=== PATIENT | female | born 1930 | race Caucasian/White ===

== ENCOUNTER 2016-10-23 18:57 | Inpatient (IN) | payer MEDICARE, BC ==
[~2016-10-23] VITALS: Ht 165.1 cm; Wt 47.2 kg
--- NOTE | 2016-10-23 19:08 | NUR ---
PT BIBA #878 PT STATES SHE HAD A GLF YESTERDAY C/O LEFT SHOULDER AND LEFT HIP PAIN. PT AOX3 RR EVEN AND UNLABORED. NO SOB NOTED. NAD NOTED. NO NVD AT THIS TIME. PT NOT DIAPHORETIC. PT GOWNED AND PLACED ON MONITOR. MD AT BEDSIDE FOR EVAL.
--- NOTE | 2016-10-23 19:09 | NUR ---
NOTED BRUISE ON MD BROOKE AWARE.
--- NOTE | 2016-10-23 19:20 | NUR ---
PT TO CT
[2016-10-23 19:41] LABS: BASOPHILS % (AUTO) 0.2 % (0.0-2.0); EOSINOPHILS % (AUTO) 0.3 % (0.0-6.0); HEMATOCRIT 27 % (33-45); HEMOGLOBIN 9.1 g/dL (11.5-14.8); LYMPHOCYTES # (AUTO) 0.4 /CMM (0.8-4.8); LYMPHOCYTES % (AUTO) 3.3 % (20.0-44.0); MEAN CORPUSCULAR HEMOGLOBIN 28 PG (26.0-33.0); MEAN CORPUSCULAR HGB CONC 34 g/dl (31.0-36.0); MEAN CORPUSCULAR VOLUME 84 fL (82-100); MONOCYTES # (AUTO) 1.3 /CMM (0.1-1.30); MONOCYTES % (AUTO) 9.5 % (2.0-12.0); NEUTROPHILS # (AUTO) 11.5 /CMM (1.8-8.9); NEUTROPHILS % (AUTO) 86.7 % (43.0-81.0); PLATELET COUNT (AUTO) 250 /CMM (150-450); RDW COEFFICIENT OF VARIATION 19.4 (11.5-15.0); RED BLOOD CELL COUNT(AUTO) 3.21 MIL/uL (4.0-5.2); WHITE BLOOD COUNT (AUTO) 13.2 K/uL (4.3-11.0)
--- NOTE | 2016-10-23 19:41 | NUR ---
PT RETURNED FROM CT. CAREGIVER AT BEDSIDE
[2016-10-23 19:49] LABS: CALCIUM, SERUM 8.4 mg/dL (8.5-10.1); CARBON DIOXIDE 22 mmol/L (21-32); CHLORIDE 95 mmol/L (98-107); CREATININE 1.7 mg/dL (0.6-1.3); GLUCOSE 117 mg/dL (74-106); POTASSIUM 3.9 mmol/L (3.5-5.1); SODIUM SERUM 131 mmol/L (136-145); UREA NITROGEN, BLOOD 14 mg/dL (7-18)
[2016-10-23 19:52] LABS: INR 0.97 (0.87-1.13); PROTHROMBIN TIME 10.1 SECS (9.5-12.7)
[2016-10-23 19:56] LABS: ALANINE AMINOTRANSFERASE 17 U/L (12-78); ALBUMIN 2.9 g/dL (3.4-5.0); ALKALINE PHOSPHATASE 164 U/L (46-116); ASPARTATE AMINOTRANSFERASE 40 U/L (15-37); BILIRUBIN,DIRECT 0.2 mg/dL (0.0-0.2); BILIRUBIN,TOTAL 0.5 mg/dL (0.2-1.0); TOTAL PROTEIN, SERUM 7.1 g/dL (6.4-8.2); TROPONIN I < 0.017 ng/mL (0.00-0.056)
[2016-10-23] MEDS ORDERED: MORPHINE SULFATE INJ 2 MG/ML DISP.SYRIN IV ONE (20:30)
[2016-10-23] MEDS ORDERED: MORPHINE SULFATE INJ 2 MG/ML DISP.SYRIN ONE (20:32)
--- NOTE | 2016-10-23 20:44 | NUR ---
MD AT BEDSIDE SPEAKING PT KAMALJIT SNEED AND PT.
--- NOTE | 2016-10-23 20:45 | NUR ---
KAMALJIT MOTTA (BANNER) CELL [phone]
--- NOTE | 2016-10-23 20:56 | NUR ---
URINE COLLECTED. SENT TO LAB
--- NOTE | 2016-10-23 21:13 | NUR ---
Dr Marsh paged for PT admit.
--- NOTE | 2016-10-23 21:49 | NUR ---
PT ASSIGNED TO [place] BED 321
--- NOTE | 2016-10-23 21:52 | NUR ---
PT ASSIGNED TO MS 204
[2016-10-23] MEDS ORDERED: Z GUARD REMEDY 2 OZ OINT TP PRN (22:00)
[2016-10-23] MEDS ORDERED: ZOLPIDEM TARTRATE 5 MG TABLET PO PRN (22:00)
[2016-10-23] MEDS ORDERED: MAGNESIUM HYDROXIDE 30 ML UDC PO PRN (22:00)
[2016-10-23] MEDS ORDERED: MORPHINE SULFATE INJ 2 MG/ML DISP.SYRIN IV PRN (22:00)
[2016-10-23] MEDS ORDERED: ONDANSETRON HCL/PF 4 MG/2 ML VIAL IVP PRN (22:00)
[2016-10-23] MEDS ORDERED: MAG HYDROX/AL HYDROX/SIMETH 30 ML UDC PO PRN (22:00)
[2016-10-23] MEDS ORDERED: ACETAMINOPHEN 325 MG TABLET PO PRN (22:00)
--- NOTE | 2016-10-23 22:05 | NUR ---
REPORT GIVEN SOMMER
--- NOTE | 2016-10-23 22:28 | NUR ---
PT TRANSFERED VIA [facility] TO MS BED 204
[2016-10-23 22:50] VITALS: BP 130/97
--- NOTE | 2016-10-23 22:50 | NUR ---
MS RN ADMITTING NOTES: ADMITTED AN 86 YO FEMALE PATIENT WHO WAS SEEN IN THE ER AFTER HAVING A MECHANICAL FALL AT HOME. PATIENT WAS ADMITTED FOR LEFT HIP AND LEFT SHOULDER FRACTURE. PATIENT WAS TRANSFERRED TO MT FLOOR VIA TIMOTHY, AOX4, ON O2 AT 2 LPM VIA NC, BREATHING EVEN AND UNLABORED. PATIENT ACCOMPANIED BY CAREGIVER. APPEARS CALM, BUT STATES THAT SHE HAS 7/10 PAIN OVER HER LEFT HIP AND SHOULDER WHEN SHE IS NOT BEING MOVED AND 10/10 PAIN WHENEVER SHE IS BEING TURNED. NOTED LARGE BRUISED AREA FROM LEFT SHOULDER TO AXILLA TO LEFT UPPER ARM. ELEVATED AREA AND APPLEID ICE PACK. PROVIDED FOR COMFORT AND SAFETY. ADMITTING CARE DONE. WILL CONT TO MONITOR.
--- NOTE | 2016-10-23 23:15 | NUR ---
RN NOTES: PATIENT STATES THAT SHE HAS HER CPA , KAMALJIT MOTTA, HAS COPY OF HER ADVANCE DIRECTIVES. IN THE MEANTIME, SHE STATED THAT SHE DOES NOT WANT TO BE INTUBATED (DNI), BUT IS AGREEABLE TO CPR. DR FLEMING AT BEDSIDE, TOOK NOTE, AND EXPLAINED TO PATIENT. WILL FF UP COPY OF ADVANCE DIRECTIVES WITH KAMALJIT MOTTA .
--- NOTE | 2016-10-23 23:15 | NUR ---
RN NOTES: DR FLEMING AT BEDSIDE. ORDERED FOR BACON CATHETER AND UA. STATES IV FLUID NOT NEEDED AT THIS TIME.
[2016-10-24] VITALS (13 sets, daily range): BP systolic 103–140; BP diastolic 60–78
--- NOTE | 2016-10-24 00:30 | NUR ---
RN NOTES: BACON CATHETER FR 16 INSERTED. NOTED CLOUDY APPEARANCE OF URINE. INFORMED DR FLEMING, WHO ORDERED FOR UA. NOTED AND CARRIED OUT.
[2016-10-24] MEDS ORDERED: MORPHINE SULFATE INJ 2 MG/ML DISP.SYRIN ONE (00:49)
[2016-10-24] MEDS: MORPHINE SULFATE INJ 2 MG/ML DISP.SYRIN IV PRN ×4 (00:55→19:18)
--- NOTE | 2016-10-24 02:21 | NUR ---
RN NOTES: PATIENT HAS BAG WITH CAREGIVER, CONTENTS CHECKED, AND BOTTLE OF UNKNOWN MIXED PILLS/ TABLETS WERE FOUND INSIDE. ACCDG TO HER, IT IS JUST HER OLD VITAMINS. PATIENT UNABLE TO RECALL WHAT THESE ARE FOR. PATIENT AGREED TO GIVE IT TO PHARMACY FOR SAFEKEEPING. FOR VALUABLES IN BAG, OFFERED TO PLACE IT IN SAFE IN TURRET PUNCH PRESS OPERATOR'S OFFICE FOR SAFEKEEPING, PATIENT REFUSED, SAYING SHE WANTS IT TO BE KEPT BY CAREGIVER.
--- NOTE | 2016-10-24 06:32 | NUR ---
MS RN CLOSING NOTES: PATIENT IN BED, AOX4, ON O2 AT 2 LPM VIA NC FOR COMFORT, BREATHING EVEN AND UNLABORED. PIV ACCESS OVER RAC G 18 INTACT AND PATENT TO FLUSH. MAINTAINED ON NPO. DUE MEDS GIVEN, PROVIDED FOR COMFORT AND SAFETY. CAREGIVER AT BEDSIDE. WILL ENDORSE TO AM RN FOR KWABENA.
[2016-10-24 06:42] LABS: BASOPHILS % (AUTO) 0.6 % (0.0-2.0); EOSINOPHILS % (AUTO) 0.4 % (0.0-6.0); HEMATOCRIT 23 % (33-45); HEMOGLOBIN 7.4 g/dL (11.5-14.8); LYMPHOCYTES # (AUTO) 0.9 /CMM (0.8-4.8); LYMPHOCYTES % (AUTO) 11.8 % (20.0-44.0); MEAN CORPUSCULAR HEMOGLOBIN 27 PG (26.0-33.0); MEAN CORPUSCULAR HGB CONC 32 g/dl (31.0-36.0); MEAN CORPUSCULAR VOLUME 84 fL (82-100); MONOCYTES % (AUTO) 13.8 % (2.0-12.0); NEUTROPHILS # (AUTO) 5.4 /CMM (1.8-8.9); NEUTROPHILS % (AUTO) 73.4 % (43.0-81.0); PLATELET COUNT (AUTO) 211 /CMM (150-450); RDW COEFFICIENT OF VARIATION 21.4 (11.5-15.0); RED BLOOD CELL COUNT(AUTO) 2.76 MIL/uL (4.0-5.2); WHITE BLOOD COUNT (AUTO) 7.4 K/uL (4.3-11.0)
--- NOTE | 2016-10-24 07:05 | NUR ---
MS RN OPENING RECEIVED PATIENT A/OX4 STATES PAIN CONTROLLED WITH PRN MEDICATIONS AND NON PHARM MEASURES. DENIES SOB AND DIFFICULTY BREATHING RESPIRATIONS EQUAL AND UNLABORED. PATIENT HAS A 24H CAREGIVER AT BEDSIDE AND STATES NO NEEDS AT THIS TIME APPEARS STABLE. CALL LIGHT IN REACH, BED LOWERED AND LOCKED, RAILS UPX3 FOR SAFETY AND WILL ROUND Q2H OR LESS PER NEEDS. BED ALARM ON
[2016-10-24 07:11] LABS: CREATININE 1.5 mg/dL (0.6-1.3); MAGNESIUM 1.4 mg/dL (1.8-2.4); PHOSPHORUS 4.3 mg/dL (2.5-4.9); POTASSIUM 4.4 mmol/L (3.5-5.1)
[2016-10-24 07:14] LABS: APPEARANCE,URINE SL CLOUDY (CLEAR); BILIRUBIN,URINE NEGATIVE (NEGATIVE); BLOOD, URINE 3+ Ery/uL (NEGATIVE); COLOR,URINE YELLOW (YELLOW); KETONES,URINE NEGATIVE (NEGATIVE); LEUKOCYTE ESTERASE ,URINE 2+ (NEGATIVE); NITRITE, URINE POSITIVE (NEGATIVE); PROTEIN,URINE 2+ mg/dl (NEGATIVE); UGLUCOSE NEGATIVE (NEGATIVE); UROBILINOGEN,URINE 0.2 EU/dL (0.2)
[2016-10-24 07:35] LABS: ADD URINE CULTURE YES; BACTERIA,URINE Moderate /HPF (None Seen); SQUAMOUS EPITHELIAL CELL,UR Few /HPF (None Seen); WBC,URINE TOO NUMEROUS TO COUN /HPF (0-3)
[2016-10-24 07:36] LABS: RBC,URINE 21-50 /HPF (0-2)
--- NOTE | 2016-10-24 08:21 | NUR ---
MS RN NOTES PER DR FLEMING PATIENT IS TO BE NPO
--- NOTE | 2016-10-24 08:34 | NUR ---
WOUND CARE CONSULT: PT PRESENTS WITH BRUISING AND SWELLING TO LEFT UPPER ARM AND SHOULDER, PRESENT ON ADMISSION AND TENDERNESS TO LEFT HIP. SACRUM IS VERY BONY WITH BLANCHING REDNESS. PT ON RONNIE PRESSURE REDISTRIBUTION MATTRESS AT THIS TIME. FIRST STEP MATTRESS ORDERED BY MD. CROW IS 13. PT TO BE TURNED AND REPOSITIONED EVERY 2 HRS PT CONDITION PERMITS, HEELS FLOATED. ALL SKIN PROTECTION MEASURES IN PLACE. DISCUSSED WITH NURSING STAFF. MD IN AGREEMENT WITH PLAN OF CARE. Addendum: 10/24/16 at 0836 by EDWARD SAMAYOAU Amended: Links added. Addendum: 10/24/16 at 0837 by EDWARD JAQUEZ PT HAS CAREGIVER AT BEDSIDE.
--- NOTE | 2016-10-24 09:15 | NUR ---
MS RN NOTES SPOKE WITH PATIENT POA AND THEY WILL FAX CODE STATUS PAPERS
[2016-10-24] MEDS: IV NS 0.9% 1,000 ML IV PRN (11:02)
--- NOTE | 2016-10-24 12:45 | NUR ---
MS RN NOTES WESLEY AWARE OF PATIENT DROP IN HBG
--- NOTE | 2016-10-24 13:00 | NUR ---
MS RN NOTES NOTIFIED WESLEY OF PATIENT URINE RESULTS
[2016-10-24] MEDS ORDERED: SECONDARY IV SET 1 EA INFUS.SET MC ONE (13:03)
[2016-10-24] MEDS: Magnesium 1GM/D5W 100ML PREMIX 100 ML IV SCH ×4 (13:19→22:18)
[2016-10-24] MEDS ORDERED: BLOOD IV SET 1 EA INFUS.SET MC ONE ×2 (14:13→21:47)
[2016-10-24] MEDS ORDERED: IV NS 0.9% 250 ML IV ONE (14:13)
--- NOTE | 2016-10-24 14:27 | NUR ---
MS RN NOTES PT A/OX4 CONSENTING TO BLOOD TRANSFUSION. PATIENT IS LEFT HANDED AND UNABLE TO SIGN PAPERS FOR BLOOD TRANSFUSION. REQUESTING 2 RN TO SIGN ON BEHALF. PATIENT CONSENTS TO BLOOD TRANSFUSION
[2016-10-24 17:15] LABS: THYROID STIMULATING HORMONE 3.785 uIU/mL (0.358-3.74)
--- NOTE | 2016-10-24 17:30 | NUR ---
MS RN NOTES CALLED [facility] TO HAVE SLING BROUGHT UP
[2016-10-24] MEDS: CEFTRIAXONE 1 G in IV D5W 50 ML IV SCH (18:17)
--- NOTE | 2016-10-24 19:05 | NUR ---
MS RN CLOSING PT STABLE. TOLERATED BLOOD TRANSFUSION WELL NO COMPLICATIONS VS STABLE. PAIN MANAGED WITH PRN MEDICATIONS. AWAITING ARM SLING FOR PATIENT. PATIENT STATES SHE WILL TRY AND SIGN HER CONSENTS AGAIN. 24HR CAREGIVER AT BEDSIDE. ALL DUE MEDS GIVEN AND ALL NEEDS MET. ENDORSED TO SOMMER CLARK THAT PATIENT IS NEEDING ANOTHER BLOOD TRANSFUSION AND TO COMPLETE 2 MORE BAGS OF MAGNESIUM WELL. AT THIS TIME BAG #2 OF MAG BEING INFUSED. PT STATES SHE WOULD LIKE PAIN MEDICATIONS PAIN IS UNTOLERABLE, WILL GIVE FOR PATIENT. LEFT WITH CALL LIGHT IN REACH, BED LOWERED AND LOCKED, RAILS UPX3 WITH BED ALARM ON. CARE ENDORSED TO SOMMER CLARK
--- NOTE | 2016-10-24 19:30 | NUR ---
MS RN CLOSING NOTES: PATIENT IN BED , AOX4, ON ROOM AIR, BREATHING EVEN AND UNLABORED. BREATH SOUNDS CLEAR. APPEARS CALM AND IN NO DISTRESS. STATES THAT SHE HAS PAIN AT AROUND 6 /10 OVER HER LEFT HIP AND SHOULDER. PIV ACCESS OVER RAC G 18 INTACT AND PATENT, INFUSING WELL WITH IVF OF NS RUNNING AT 75 ML/HR. PROVIDED FOR COMFORT AND SAFETY. PRIVATE CG AT BEDSIDE. WILL CONT TO MONITOR.
--- NOTE | 2016-10-24 19:45 | NUR ---
MS RN NOTES PT SIGNED CONSENTS FOR EGD AND PROCEDURE
--- NOTE | 2016-10-24 22:00 | NUR ---
RN NOTES: REITERATED NPO ORDERS TO PATIENT OF THIS TIME FOR ORTHO PROCEDURE IN AM (L REVERSE TOTAL SHOULDER ARTHROPLASTY) WELL EGD. CONSENTS SIGNED. PATIENT AND CAREGIVER VERBALIZED AGREEMENT. WILL CONT TO MONITOR.
--- NOTE | 2016-10-24 23:15 | NUR ---
RN NOTES: STARTED SECOND BAG OF PRBC FOR TRANSFUSION. VS CHECKED AND WNL PRIOR TO HANGING OF BLOOD PRODUCT. CONSENT FORM FOR BT SIGNED. BREATH SOUNDS CLEAR, AFEBRILE, IN NO DISTRESS. PIV OVER RAC G 18 INTACT AND PATENT.
[2016-10-25] VITALS (7 sets, daily range): BP systolic 109–134; BP diastolic 59–70
--- NOTE | 2016-10-25 | NUR ---
RN NOTES: PATIENT ASLEEP AT THIS TIME, BUT AWAKENS WITH COMMAND, DENIES ANY , FLANK PAIN, ITCHING. VS WNL, CONSTANTLY MONITORED. PRBC TRANSFUSING PATENTLY OVER RAC PIV ACCESS. WILL CONT TO MONITOR.
--- NOTE | 2016-10-25 02:24 | NUR ---
RN NOTES: TRANSFUSION OF 2ND UNIT PRBC DONE AT THIS TIME. VS STAYED WNL THROUGHOUT THE TRANSFUSION. NO TRANSFUSION REACTION SIGNS OBSERVED. PATIENT REMAINS CALM, ASLEEP INTERMITTENTLY. WILL CONT TO MONITOR.
[2016-10-25] MEDS: IV NS 0.9% 1,000 ML IV PRN (06:02)
[2016-10-25] MEDS ORDERED: EPINEPHRINE (1:1000) MDV 30 MG/30ML VIAL ONE (06:22)
[2016-10-25] MEDS ORDERED: BUPIVACAINE 0.5 % PF 150 MG/30 ML VIAL ONE (06:22)
[2016-10-25 06:48] LABS: BASOPHILS % (AUTO) 0.3 % (0.0-2.0); EOSINOPHILS # (AUTO) 0.1 /CMM (0.0-0.7); EOSINOPHILS % (AUTO) 0.9 % (0.0-6.0); HEMATOCRIT 33 % (33-45); LYMPHOCYTES # (AUTO) 0.7 /CMM (0.8-4.8); LYMPHOCYTES % (AUTO) 8.2 % (20.0-44.0); MEAN CORPUSCULAR HEMOGLOBIN 29 PG (26.0-33.0); MEAN CORPUSCULAR HGB CONC 33 g/dl (31.0-36.0); MEAN CORPUSCULAR VOLUME 86 fL (82-100); MONOCYTES # (AUTO) 1.1 /CMM (0.1-1.30); NEUTROPHILS # (AUTO) 6.9 /CMM (1.8-8.9); NEUTROPHILS % (AUTO) 78.6 % (43.0-81.0); PLATELET COUNT (AUTO) 181 /CMM (150-450); RDW COEFFICIENT OF VARIATION 17.8 (11.5-15.0); RED BLOOD CELL COUNT(AUTO) 3.85 MIL/uL (4.0-5.2); WHITE BLOOD COUNT (AUTO) 8.8 K/uL (4.3-11.0)
[2016-10-25] MEDS ORDERED: BACITRACIN 50000 UNITS/VIAL ONE (06:49)
--- NOTE | 2016-10-25 07:05 | NUR ---
MS RN CLOSING NOTES: PATIENT IN BED, AOX4, ON ROOM AIR, BREATHING EVEN AND UNLABORED. OR NURSES AT BEDSIDE TO FLOWER ARRANGER PATIENT. PIV ACCESS OVER RAC G 18 INTACT AND PATENT, INFUSING WELL WITH NS RUNNING AT 75 ML/HR. MAINTAINED ON NPO. BLOOD SUGAR CHECKED AT 93 MG/DL. NO ACUTE CHANGE IN CONDITION NOTED THROUGH SHIFT. PROVIDED FOR COMFORT AND SAFETY. PATIENT BROUGHT TO OR AT 0705 AM. WILL ENDORSE TO AM RN FOR KWABENA.
[2016-10-25 07:28] LABS: CALCIUM, SERUM 8.1 mg/dL (8.5-10.1); CREATININE 1.1 mg/dL (0.6-1.3); MAGNESIUM 2.7 mg/dL (1.8-2.4); POTASSIUM 3.8 mmol/L (3.5-5.1)
--- NOTE | 2016-10-25 07:35 | NUR ---
RN NOTES PATIENT IN OR WILL CONTINUE TO MONITOR UPON RETURN
[2016-10-25] MEDS ORDERED: FENTANYL PF 250MCG/5ML AMPUL ONE (07:41)
[2016-10-25] MEDS ORDERED: ROCURONIUM BROMIDE 50 MG/5 ML ONE (07:41)
[2016-10-25] MEDS ORDERED: KETAMINE HCL (500MG/10ML) 50 MG/ML VIAL ONE (07:41)
[2016-10-25] MEDS ORDERED: MIDAZOLAM HCL 2 MG/2ML VIAL ONE (07:41)
[2016-10-25] MEDS ORDERED: GLYCOPYRROLATE 0.2 MG/ML VIAL ONE (09:15)
[2016-10-25 09:34] LABS: MAGNESIUM 2.7 mg/dL (1.8-2.4)
[2016-10-25] MEDS ORDERED: NALOXONE HCL 0.4 MG/ML AMPUL ONE (10:01)
--- NOTE | 2016-10-25 11:00 | NUR ---
RN NOTES PATIENT BACK FROM OR, AWAKE ALERT AND VERBALLY RESPONSIVE ABLE TO MAKE NEEDS KNOWN RESPIRATIONS EVEN AND UNLABORED, VSS IN NO APPARENT PAIN OR DISCOMFORT WILL CONTINUE TO MONITOR
[2016-10-25 12:30] LABS: BETA-2 MICROGLOBULIN, SERUM 5.2 mg/L (0.6-2.4); CANCER AG, 15-3 25.5 U/mL (0.0-25.0); IMMUNOGLOBULIN A, SERUM 710 mg/dL (64-422); IMMUNOGLOBULIN G, SERUM 900 mg/dL (700-1600); IMMUNOGLOBULIN M, SERUM 100 mg/dL (26-217)
[2016-10-25] MEDS ORDERED: SECONDARY IV SET 1 EA INFUS.SET MC ONE ×2 (13:11→17:37)
[2016-10-25] MEDS: CEFTRIAXONE 1 G in IV D5W 50 ML IV SCH (13:21)
[2016-10-25] MEDS ORDERED: ANESTHESIA TRAY IN PYXIS 1 EA TRAY MC ONE (13:27)
[2016-10-25] MEDS: HYDROCODONE/APAP 5/325MG 1 EACH TABLET PO PRN ×2 (14:15→20:02)
[2016-10-25 14:26] LABS: *SPE A/G RATIO 0.9 (0.7-1.7); *SPE ALBUMIN 2.7 g/dL (2.9-4.4); *SPE ALPHA-1-GLOBULIN 0.4 g/dL (0.0-0.4); *SPE ALPHA-2-GLOBULIN 0.6 g/dL (0.4-1.0); *SPE BETA GLOBULIN 0.8 g/dL (0.7-1.3); *SPE M-SPIKE Not Observed g/dL (Not Observed); *SPE PROTEIN TOTAL 5.7 g/dL (6.0-8.5); *SPEGAMMA GLOBULIN 1.3 g/dL (0.4-1.8)
[2016-10-25 17:34] LABS: HEMATOCRIT 32 % (33-45); HEMOGLOBIN 10.6 g/dL (11.5-14.8); LYMPHOCYTES # (AUTO) 0.3 /CMM (0.8-4.8); LYMPHOCYTES % (AUTO) 2.5 % (20.0-44.0); MEAN CORPUSCULAR HEMOGLOBIN 28 PG (26.0-33.0); MEAN CORPUSCULAR HGB CONC 33 g/dl (31.0-36.0); MEAN CORPUSCULAR VOLUME 86 fL (82-100); MONOCYTES # (AUTO) 0.4 /CMM (0.1-1.30); NEUTROPHILS # (AUTO) 10.1 /CMM (1.8-8.9); NEUTROPHILS % (AUTO) 93.5 % (43.0-81.0); PLATELET COUNT (AUTO) 197 /CMM (150-450); RDW COEFFICIENT OF VARIATION 18.1 (11.5-15.0); RED BLOOD CELL COUNT(AUTO) 3.76 MIL/uL (4.0-5.2); WHITE BLOOD COUNT (AUTO) 10.8 K/uL (4.3-11.0)
[2016-10-25] MEDS: ANCEF 1 GM/50 ML D5W IV SCH ×2 (17:45)
[2016-10-25 17:46] LABS: CALCIUM, SERUM 7.7 mg/dL (8.5-10.1); CREATININE 1.4 mg/dL (0.6-1.3); POTASSIUM 4.1 mmol/L (3.5-5.1)
--- NOTE | 2016-10-25 19:30 | NUR ---
RN NOTE; RECEIVED A PT IN BED AWAKE AND ALERT. BREATHING EVENLY. NO SOB. NO DISTRESS. LEFT SHOULDER SLING IN PLACE W/ SOME DISCOMFORT. F/C IN PLACE DRAINING WELL. NEEDS ATTENDED. CALL LIGHT WITHIN REACH. WILL CONT TO MONITOR
--- NOTE | 2016-10-25 19:36 | NUR ---
RN NOTES PT REFUSED, UNABLE TO STAND Addendum: 10/25/16 at 1937 by JOSE HERNANDEZ RN Amended: Links added. Addendum: 10/25/16 at 1942 by JOSE HERNANDEZ RN RN NOTES PT REFUSED, NURSING EDUCATION REINFORCED
--- NOTE | 2016-10-25 19:43 | NUR ---
RN NOTES: PATIENT IN BED, AOX4, ON ROOM AIR, BREATHING EVEN AND UNLABORED. PIV ACCESS OVER RAC G 18 INTACT AND PATENT NO REDNESS OR INFILTRATION NOTED, INFUSING WELL WITH NS RUNNING AT 75 ML/HR. NO ACUTE CHANGE IN CONDITION NOTED THROUGHOUT SHIFT. PROVIDED FOR COMFORT AND SAFETY. ENDORSED TO NEXT SHIFT FOR CONTINUITY OF CARE
--- NOTE | 2016-10-25 20:02 | NUR ---
NORCO GIVEN FOR C/O L SHOULDER PAIN . WILL CONT TO MONITOR
[2016-10-26] MEDS: ANCEF 1 GM/50 ML D5W IV SCH ×2 (00:22)
[2016-10-26] MEDS: HYDROCODONE/APAP 5/325MG 1 EACH TABLET PO PRN ×3 (02:50→20:17)
--- NOTE | 2016-10-26 02:51 | NUR ---
NORCO GIVEN FOR C/O L SHOULDER PAIN . WILL CONT TO MONITOR
--- NOTE | 2016-10-26 06:19 | NUR ---
RN NOTE; PT IN BED SLEEPING, AROUSES EASILY. BREATHING EVENLY. NO COMPLICATION S/P SX. DRESSING AND SLING IN PLACE ON L SHOULDER. PAIN MEDICATION GIVEN ORDERED W/ RELIEF. ASSISTED W/ ADLS. CALL LIGHT WITHIN REACH. WILL CONT TO MONITOR AND WILL ENDORSE TO AM SHIFT FOR KWABENA.
[2016-10-26 06:59] LABS: BASOPHILS % (AUTO) 0.1 % (0.0-2.0); HEMATOCRIT 29 % (33-45); HEMOGLOBIN 9.6 g/dL (11.5-14.8); LYMPHOCYTES # (AUTO) 0.4 /CMM (0.8-4.8); LYMPHOCYTES % (AUTO) 3.6 % (20.0-44.0); MEAN CORPUSCULAR HEMOGLOBIN 29 PG (26.0-33.0); MEAN CORPUSCULAR HGB CONC 33 g/dl (31.0-36.0); MEAN CORPUSCULAR VOLUME 87 fL (82-100); MONOCYTES # (AUTO) 0.9 /CMM (0.1-1.30); MONOCYTES % (AUTO) 8.1 % (2.0-12.0); NEUTROPHILS # (AUTO) 9.7 /CMM (1.8-8.9); NEUTROPHILS % (AUTO) 88.2 % (43.0-81.0); PLATELET COUNT (AUTO) 208 /CMM (150-450); RDW COEFFICIENT OF VARIATION 17.9 (11.5-15.0); RED BLOOD CELL COUNT(AUTO) 3.33 MIL/uL (4.0-5.2)
[2016-10-26 07:27] LABS: CALCIUM, SERUM 7.4 mg/dL (8.5-10.1); CREATININE 1.3 mg/dL (0.6-1.3); POTASSIUM 4.3 mmol/L (3.5-5.1)
--- NOTE | 2016-10-26 07:40 | NUR ---
RN NOTES: PATIENT IN BED, AOX4, ON ROOM AIR, BREATHING EVEN AND UNLABORED. PIV ACCESS OVER RFA 22 G INTACT AND PATENT NO REDNESS OR INFILTRATION NOTED, INFUSING WELL WITH NS RUNNING AT 75 ML/HR. NO ACUTE CHANGE IN CONDITION NOTED THROUGHOUT SHIFT. PROVIDED FOR COMFORT AND SAFETY. WILL CONTINUE TO MONITOR
[2016-10-26 08:00] VITALS: BP 126/79
[2016-10-26] MEDS ORDERED: SECONDARY IV SET 1 EA INFUS.SET MC ONE (10:58)
[2016-10-26] MEDS ORDERED: Calcium Gluconate 1GM/10ML 4.65 MEQ in IV D5W 50 ML IV ONE (11:00)
[2016-10-26] MEDS: ENOXAPARIN SODIUM 40 MG/0.4 ML DISP.SYRIN SQ SCH (11:09)
[2016-10-26] MEDS: CEFTRIAXONE 1 G in IV D5W 50 ML IV SCH (14:14)
[2016-10-26 16:00] VITALS: BP 132/78
--- NOTE | 2016-10-26 19:30 | NUR ---
RN NOTES RECEIVED PT. AWAKE ON BED, A/OX3. CAREGIVER AT BEDSIDE, F/C DRAINING CLEAR YELLOW URINE, IV FLUID NS RUNNING @ 75ML/HR,DRESSING ON THE LEFT SHOULDER DRY AND INTACT, DENIES PAIN AT THIS TIME,. NO SOB CALL LIGHT WITHIN REACH, SIDERAILS UPX2 CONTINUE TO MONITOR
--- NOTE | 2016-10-26 19:33 | NUR ---
RN NOTES: PATIENT IN BED, AOX4, ON ROOM AIR, BREATHING EVEN AND UNLABORED. PIV ACCESS OVER RFA 22 G INTACT AND PATENT NO REDNESS OR INFILTRATION NOTED, INFUSING WELL WITH NS RUNNING AT 75 ML/HR. NO ACUTE CHANGE IN CONDITION NOTED THROUGHOUT SHIFT. PROVIDED FOR COMFORT AND SAFETY. WILL CONTINUE TO MONITOR, ENDORSED TO NEXT SHIFT FOR CONTINUITY OF CARE
[2016-10-26 19:53] VITALS: BP 124/72
--- NOTE | 2016-10-26 20:17 | NUR ---
RN NOTES COMPLAINED OF LEFT SHOULDER PAIN- NORCO 5/325 MG PO GIVEN ORDERED, V/S STABLE
[2016-10-26] MEDS: IV NS 0.9% 1,000 ML IV PRN (20:39)
[2016-10-26] MEDS ORDERED: SENNOSIDES/DOCUSATE SODIUM 1 TAB TABLET PO SCH (22:00)
[2016-10-27] MEDS: HYDROCODONE/APAP 5/325MG 1 EACH TABLET PO PRN (06:35)
--- NOTE | 2016-10-27 06:38 | NUR ---
RN NOTES COMPLAINED OF LEFT SHOULDER PAIN- NORCO 5/325 MG PO GIVEN ORDERED, V/S STABLE
--- NOTE | 2016-10-27 06:45 | NUR ---
RN NOTES SLEEPING BUT AROUSABLE, PT STILL REFUSING MORNING CARE, IV FLUID RUNNING, DRESSING ON THE LEFT SHOULDER DRY AND INTACT, PT. NEEDS ATTENDED.
[2016-10-27 07:18] LABS: CALCIUM, SERUM 7.7 mg/dL (8.5-10.1); CREATININE 1.3 mg/dL (0.6-1.3); POTASSIUM 3.6 mmol/L (3.5-5.1)
[2016-10-27 08:00] VITALS: BP 149/80
[2016-10-27] MEDS: MORPHINE SULFATE INJ 2 MG/ML DISP.SYRIN IV PRN ×3 (09:30→21:34)
[2016-10-27] MEDS: ENOXAPARIN SODIUM 40 MG/0.4 ML DISP.SYRIN SQ SCH (09:31)
--- NOTE | 2016-10-27 12:41 | NUR ---
ESTEBAN received a consult from Dr. Chilel requesting due to possible alcohol abuse. Per WILFRIDO Pabon's report, the patient is an 86-year-old female with past medical history of osteoarthritis and dementia for which, however, she wasambulating and had a fall, subsequently brought to the emergency room and was noted to have a left shoulder fracture for which she has been evaluated by Orthopedic Surgery with plans for intervention, currently pending. Additionally, she was noted to have left hip fracture with associated plan as well. Pt. also had lots of excoriations/lesions on her legs. Pt. smokes one pack of cigarettes per day and is a heavy drinker. Pt. has a history of alcohol abuse. Pt. lives alone and has 24 hour caregiver. SW met with pt. and her caregiver bedside for social service assessment. Pt. was eating lunch. SW to follow up later today to complete assessment. Addendum: 10/27/16 at 1415 by MI ORELLANA SW met with pt. bedside. Pt. informed SW she resides alone and has two caregivers, day shift and tanning drum operator. SW inquired with pt. if she is being treated well by the caregivers. Pt. states, " they are very good, i just don't ask for as much help as i should." SW encouraged pt. to ask for help from her caregivers. Pt. denied any abuse by caregivers. Pt. has a history alcohol use. Pt. disclosed to SW she drinks approximately 2 to 3 glasses of vodka daily. Pt. also stated her daughter Teressa is coming from [place] today fo ra few days to visit pt. Pt. stated her daughter and her CPA are her DPOA. ESTEBAN followed up with Dr. Chilel and updated her on the information pt. disclosed to SW.
[2016-10-27] MEDS: CEFTRIAXONE 1 G in IV D5W 50 ML IV SCH (13:56)
[2016-10-27 16:00] VITALS: BP 151/94
[2016-10-27] MEDS: DOCUSATE SODIUM 250 MG CAPSULE PO SCH (19:10)
--- NOTE | 2016-10-27 19:37 | NUR ---
MS OPENING NURSES NOTE. GAVE REPORT TO NIGHT NURSE. PATIENT VSS. PATIENT ADMITS TO REDUCED PAIN LEVEL. PATIENT IS IN BED WITH BOTH SIDE RAILS UP, WATCHING TV , AND CHATTING WITH HER VISITORS.
[2016-10-27 20:00] VITALS: BP 150/76
[2016-10-27] MEDS ORDERED: SENNOSIDES 8.6 MG TABLET PO SCH (22:00)
[2016-10-28] MEDS: IV NS 0.9% 1,000 ML IV PRN (04:08)
[2016-10-28] MEDS: MORPHINE SULFATE INJ 2 MG/ML DISP.SYRIN IV PRN ×2 (04:24→15:12)
--- NOTE | 2016-10-28 06:55 | NUR ---
MS RN NOTES AWAKE & RESPONSIVE. NOT IN ANY DISTRESS. NO SOB NOTED. DENIES ANY PAIN OR DISCOMFORT AT THIS TIME. WITH IVF INFUSING WELL. AM CARE DONE. MONITORED ACCORDINGLY. CALL LIGHT WITHIN REACH. BED IN LOWEST POSITION. SR UP X 2 FOR SAFETY. WILL ENDORSE TO NEXT SHIFT.
--- NOTE | 2016-10-28 07:30 | NUR ---
MS/RN Patient received Patient received from mixer blender. automatic brine mixer operator at bedside, no needs at this time. Call light within reach, will continue to monitor.
[2016-10-28 07:57] LABS: EOSINOPHILS # (AUTO) 0.3 /CMM (0.0-0.7); EOSINOPHILS % (AUTO) 2.5 % (0.0-6.0); HEMATOCRIT 28 % (33-45); HEMOGLOBIN 9.4 g/dL (11.5-14.8); LYMPHOCYTES # (AUTO) 0.5 /CMM (0.8-4.8); LYMPHOCYTES % (AUTO) 3.9 % (20.0-44.0); MEAN CORPUSCULAR HEMOGLOBIN 29 PG (26.0-33.0); MEAN CORPUSCULAR HGB CONC 33 g/dl (31.0-36.0); MEAN CORPUSCULAR VOLUME 88 fL (82-100); MONOCYTES % (AUTO) 8.5 % (2.0-12.0); NEUTROPHILS # (AUTO) 10.2 /CMM (1.8-8.9); NEUTROPHILS % (AUTO) 85.1 % (43.0-81.0); PLATELET COUNT (AUTO) 238 /CMM (150-450); RDW COEFFICIENT OF VARIATION 18.5 (11.5-15.0); RED BLOOD CELL COUNT(AUTO) 3.22 MIL/uL (4.0-5.2)
[2016-10-28 08:00] VITALS: BP 126/62
[2016-10-28] MEDS: ENOXAPARIN SODIUM 40 MG/0.4 ML DISP.SYRIN SQ SCH (08:42)
[2016-10-28] MEDS: DOCUSATE SODIUM 250 MG CAPSULE PO SCH ×2 (08:43→17:00)
[2016-10-28] MEDS: HYDROCODONE/APAP 5/325MG 1 EACH TABLET PO PRN ×3 (08:43→20:08)
--- NOTE | 2016-10-28 08:57 | NUR ---
MS/RN Medications Morning medications administered as ordered, no problems swallowing.
--- NOTE | 2016-10-28 10:47 | NUR ---
MS/RN S/B Dr Andersen Seen by Dr Andersen for evaluation of left lower extremity abrasions. - pillows under legs - float heels.
--- NOTE | 2016-10-28 11:04 | NUR ---
MS/RN Consent Verbal consent given by patient for body scan.
--- NOTE | 2016-10-28 11:30 | NUR ---
MS/RN Morning care Morning care provided to patient.
--- NOTE | 2016-10-28 13:10 | NUR ---
MS/RN S/B Dr Ross Seen by Dr Ross - naranjo catheter to be removed. Awaiting on family to find [facility].
[2016-10-28 16:00] VITALS: BP 107/65
[2016-10-28] MEDS ORDERED: ENOX40DI SQ (16:41)
[2016-10-28] MEDS ORDERED: HYDR-3326 PO (16:41)
[2016-10-28] MEDS ORDERED: LACT1CAP72 PO (16:41)
[2016-10-28] MEDS ORDERED: Sennosides PO (16:41)
[2016-10-28] MEDS ORDERED: Docusate Sodium PO (16:41)
[2016-10-28] MEDS ORDERED: LACTOBACILLUS RHAMNOSUS GG 1 EACH CAP.SPRINK PO SCH (17:00)
--- NOTE | 2016-10-28 19:10 | NUR ---
MS/RN NOTES RECEIVED PT. LYING IN BED. AWAKE, ALERT AND ORIENTED X3. BREATHING EVEN AND UNLABORED ON ROOM AIR. NO SOB, RESPIRATORY DISTRESS OR COMPLAINTS OF PAIN NOTED AT THIS TIME. PER DAYSHIFT NURSE REPORT GIVEN TO [facility] AT 4 SEASONS. PT. DISCHARGE PAPERWORK AND EXIT CARE SIGNED, COMPLETED ORIGINAL PLACED IN CHART WILL PROVIDE PT. WITH COPY UPON DISCHARGE. WILL TAKE PICTURES AND REMOVE PT. IV ACCESS WHEN PT. IS BEING DISCHARGED. PT. WITH RIGHT HAND IV HEPLOCK PRESENT, PATENT AND INTACT. PT. CAREGIVER PRESENT AT BEDSIDE. BED IN LOWEST POSITION, CALL LIGHT WITHIN REACH, WILL CONTINUE TO MONITOR.
--- NOTE | 2016-10-28 19:51 | NUR ---
MS/RN End note [facility] after being placed on hold for 40 minutes. Patient endorse to paperboard machine operator to remove heplock and take pictures.
[2016-10-28 20:00] VITALS: BP 141/83
--- NOTE | 2016-10-28 21:15 | NUR ---
MS/RN NOTES RECEIVED CALL FROM [facility] THAT AMBULANCE IS LATE AND WILL ARRIVE ABOUT 45 MINUTES FROM NOW. WILL CONTINUE TO MONITOR PT.
--- NOTE | 2016-10-28 23:20 | NUR ---
MS/RN NOTES AMBULANCE ARRIVED TO SOAKING TANK WORKER PT. FOR TRANSFER TO [facility]. PT. SITTING UP IN BED. AWAKE, ALERT AND ORIENTED X3. BREATHING EVEN AND UNLABORED ON ROOM AIR. NO SOB, RESPIRATORY DISTRESS OR COMPLAINTS OF PAIN NOTED AT THIS TIME. PT. VITAL SIGNS STABLE, PT. IN STABLE CONDITION. PT. REFUSED TO MOVE HER LEFT ARM FOR PICTURES DUE TO PAIN AND PT. REFUSED PICTURES TO BE TAKEN OF HER SACRUM. PT. PICTURES TAKEN AND PLACED IN CHART. PT. DISCHARGE PAPERWORK AND EXIT CARE SIGNED, COMPLETED ORIGINAL PLACED IN CHART PT. PROVIDED WITH COPY. PT. BOTTLE OF UNKNOWN MEDICATION RETRIEVED FROM PHARMACY AND PROVIDED TO PT. REMOVED PT. IV ACCESS. NO S/S OF BLEEDING NOTED. ALL PT. NEEDS MET. PT. LEFT THE FLOOR VIA GURNEY ACCOMPANIED BY EMT AND CAREGIVER AT 2320.
== END 2016-10-28 23:20 | DRG 483 ==
LOC: ER 18:59 → MEDSG2 21:50
PROVIDERS: ADMIT Family Medicine; ATTEND Family Medicine
PROC: 30233N1 Transfusion of Nonautologous Red Blood Cells into Peripheral Vein, Percutaneous Approach (ICD-10-PCS; 2016-10-24)
PROC: 0RRK00Z Replacement of Left Shoulder Joint with Reverse Ball and Socket Synthetic Substitute, Open Approach (ICD-10-PCS; principal; 2016-10-26)
DX: S42.242A 4-part fracture of surgical neck of left humerus, initial encounter for closed fracture (principal); N17.0 Acute kidney failure with tubular necrosis; N39.0 Urinary tract infection, site not specified; E87.1 Hypo-osmolality and hyponatremia; D62 Acute posthemorrhagic anemia; M84.452A Pathological fracture, left femur, initial encounter for fracture; Y92.9 Unspecified place or not applicable; W19.XXXA Unspecified fall, initial encounter; Z96.612 Presence of left artificial shoulder joint; M19.90 Unspecified osteoarthritis, unspecified site; B96.89 Other specified bacterial agents as the cause of diseases classified elsewhere; M47.9 Spondylosis, unspecified; F17.210 Nicotine dependence, cigarettes, uncomplicated; F10.10 Alcohol abuse, uncomplicated; Z85.3 Personal history of malignant neoplasm of breast; D25.9 Leiomyoma of uterus, unspecified; F03.90 Unspecified dementia, unspecified severity, without behavioral disturbance, psychotic disturbance, mood disturbance, and anxiety; F32.9 Major depressive disorder, single episode, unspecified; J43.9 Emphysema, unspecified; L89.601 Pressure ulcer of unspecified heel, stage 1; M41.9 Scoliosis, unspecified; M51.36 Other intervertebral disc degeneration, lumbar region; M81.0 Age-related osteoporosis without current pathological fracture; R29.6 Repeated falls; Z66 Do not resuscitate; Z86.73 Personal history of transient ischemic attack (TIA), and cerebral infarction without residual deficits
CPT/HCPCS: 36415; 71010-TC; 71250-TC; 72170-TC; 72192-TC; 73020; 73030-TC; 73510-TC; 74150-TC; 78306-TC; 80048-TC; 80061-TC; 80076-TC; 81000-TC; 82232; 82306; 82378; 82728-TC; 82746; 82784; 82962-TC; 83540-TC; 83735-TC; 84100-TC; 84155; 84165; 84439-TC; 84443-TC; 84484-TC; 85025-TC; 85045-TC; 85730-TC; 86300; 86301; 86304; 86334; 86850-TC; 86921-TC; 87081-TC; 87086-TC; 87186-TC; 88305-TC; 88311-TC; 93307-TC; 97001-TC; 97530-TC; A4217; A4565; A4606; A6402; A9503; G0480; J0171; J0610; J0690; J0696; J1100; J1650; J2250; J2270; J2310; J2370; J2405; J2704; J3010; J3475; J3490; J7030; J7050; J7060; P9016-BL; Z7610

== ENCOUNTER 2018-05-17 13:05 | Outpatient (CLI) | payer MEDICARE, BC ==
[~2018-05-17 13:05] MED LIST: Docusate Sodium PO; ENOX40DI SQ; HYDR-3974 PO; LACT1CAP72 PO; Sennosides PO
== END 2018-05-17 23:59 | disposition home or self-care (01) ==
LOC: WOU 13:05
PROVIDERS: ATTEND Podiatrist Foot & Ankle Surgery
DX: I70.233 Atherosclerosis of native arteries of right leg with ulceration of ankle (principal); L97.314 Non-pressure chronic ulcer of right ankle with necrosis of bone; I70.244 Atherosclerosis of native arteries of left leg with ulceration of heel and midfoot; L97.424 Non-pressure chronic ulcer of left heel and midfoot with necrosis of bone; Z85.3 Personal history of malignant neoplasm of breast; F17.210 Nicotine dependence, cigarettes, uncomplicated; I87.2 Venous insufficiency (chronic) (peripheral)
CPT/HCPCS: 11044; Z7610

== ENCOUNTER 2018-05-21 13:00 | Outpatient (CLI) | payer MEDICARE, BC ==
[2018-05-21] MEDS ORDERED: MULT-33 PO (17:25)
[2018-05-21] MEDS ORDERED: LEVO25TA9 PO (17:25)
[2018-05-21] MEDS ORDERED: LOSA50TA21 PO (17:25)
== END 2018-05-21 23:59 | disposition home or self-care (01) ==
LOC: WOU 13:00
PROVIDERS: ATTEND Podiatrist Foot & Ankle Surgery
DX: L03.115 Cellulitis of right lower limb (principal); L03.116 Cellulitis of left lower limb; I70.244 Atherosclerosis of native arteries of left leg with ulceration of heel and midfoot; I70.233 Atherosclerosis of native arteries of right leg with ulceration of ankle; L97.526 Non-pressure chronic ulcer of other part of left foot with bone involvement without evidence of necrosis; L97.316 Non-pressure chronic ulcer of right ankle with bone involvement without evidence of necrosis; M79.672 Pain in left foot; M79.661 Pain in right lower leg; Z85.3 Personal history of malignant neoplasm of breast; Z87.891 Personal history of nicotine dependence
CPT/HCPCS: A6253; A6402; G0463; Z7610

== ENCOUNTER 2018-05-21 14:39 | Inpatient (IN) | payer MEDICARE, BC ==
[~2018-05-21] VITALS: Ht 170.2 cm; Wt 49.9 kg
--- NOTE | 2018-05-21 17:00 | NUR ---
ADMISSION NOTE PATIENT ADMITTED DIRECTLY FROM [facility] CARE CENTER, UNDER DR. FLEMING. STILL WAITING FOR ADMISSION ORDERS. SKIN ASSESSMENT COMPLETED, NOTED WITH SACRAL REDNESS, BLE WOUNDS, PHOTOS TAKEN AND PLACED IN CHART, DRESSINGS CHANGED. PATIENT DENIES PAIN AT THIS TIME. NEEDS ATTENDED AND MET, KEPT COMFORTABLE, BELONGINGS RECONCILED, PERIPHERAL IV INSERTED ON RIGHT AC, PATENT AND FLUSHES WELL, CALL LIGHT WITHIN REACH, WILL CONTINUE TO MONITOR.
[2018-05-21] MEDS ORDERED: LEVO25TA9 PO (17:25)
[2018-05-21] MEDS ORDERED: LOSA50TA21 PO (17:25)
[2018-05-21] MEDS ORDERED: MULT-33 PO (17:25)
[2018-05-21] MEDS ORDERED: ONDANSETRON HCL/PF 4 MG/2 ML VIAL IVP PRN (19:00)
[2018-05-21] MEDS ORDERED: Z GUARD REMEDY 2 OZ OINT TP PRN (19:00)
[2018-05-21] MEDS ORDERED: ZOLPIDEM TARTRATE 5 MG TABLET PO PRN (19:00)
[2018-05-21] MEDS ORDERED: MAGNESIUM HYDROXIDE 30 ML UDC PO PRN (19:00)
[2018-05-21] MEDS ORDERED: ACETAMINOPHEN 325 MG TABLET PO PRN (19:00)
[2018-05-21] MEDS ORDERED: MAG HYDROX/AL HYDROX/SIMETH 30 ML UDC PO PRN (19:00)
--- NOTE | 2018-05-21 19:09 | NUR ---
RN NOTES RECEIVED ADMITTING ORDERS FROM DR. FLEMING, PER CAREGIVER PATIENT HAS METAL ON HER LEFT SHOULDER FROM LAST YEAR'S SHOULDER SURGERY, DR. FLEMING REQUESTED FOR HOSPITAL RECORDS, AND PER CAREGIVER SHE WILL BRING THE HOSPITAL RECORD AND ADVANCE DIRECTIVE TOMORROW MORNING. ALSO RECEIVED ORDER FROM DR. PANDEY TO OBTAIN WOUND CULTURE WITH GS. ORDER NOTED AND CARRIED OUT. NEEDS ATTENDED AND MET, CALL LIGHT WITHIN REACH, WILL ENDORSE TO BIOINFORMATICS SCIENTIST FOR KWABENA.
[2018-05-21] MEDS ORDERED: FEE PK DOSING 1 MIN EA MC ONE (19:21)
[2018-05-21] MEDS ORDERED: risperiDONE LIQUID 1 MG/ML ML GT SCH (19:30)
[2018-05-21] MEDS ORDERED: LORAZEPAM 0.5 MG TABLET GT ONE (19:30)
--- NOTE | 2018-05-21 19:50 | NUR ---
RECEIVED PATIENT IN BED, AWAKE, A/OX4 WITH WELDING PRODUCTION SUPERVISOR AT BEDSIDE. BREATHING EVEN AND UNLABORED ON ROOM AIR. COLOSTOMY BAG CLEAN, IV ACCESS VIA R AC #20G PATENT AND FLUSHING. NO COMPLAINT OF PAIN OR DISCOMFORT AT THE MOMENT, BED IN LOWEST LOCKED POSITION, CALL LIGHT WITHIN REACH AT ALL TIMES, WILL CONTINUE TO MONITOR
[2018-05-21 20:00] VITALS: BP 145/75
[2018-05-21] MEDS ORDERED: VANCOMYCIN 1 GM in IV D5W 250 ML IV SCH (20:00)
[2018-05-21 20:24] LABS: BASOPHILS % (AUTO) 0.2 % (0.0-2.0); EOSINOPHILS % (AUTO) 2.5 % (0.0-6.0); HEMATOCRIT 34 % (33-45); HEMOGLOBIN 11.1 g/dL (11.5-14.8); LYMPHOCYTES # (AUTO) 0.8 /CMM (0.8-4.8); LYMPHOCYTES % (AUTO) 8.5 % (20.0-44.0); MEAN CORPUSCULAR HGB CONC 33 g/dl (31.0-36.0); MEAN CORPUSCULAR VOLUME 90 fL (82-100); MONOCYTES # (AUTO) 0.9 /CMM (0.1-1.30); MONOCYTES % (AUTO) 10.4 % (2.0-12.0); NEUTROPHILS % (AUTO) 78.4 % (43.0-81.0); PLATELET COUNT (AUTO) 307 /CMM (150-450); RDW COEFFICIENT OF VARIATION 13.7 (11.5-15.0); RED BLOOD CELL COUNT(AUTO) 3.81 MIL/uL (4.0-5.2)
[2018-05-21 20:30] LABS: CARBON DIOXIDE 26 mmol/L (21-32); CHLORIDE 95 mmol/L (98-107); CREATININE 1.4 mg/dL (0.6-1.3); GLUCOSE 135 mg/dL (74-106); POTASSIUM 4.6 mmol/L (3.5-5.1); SODIUM SERUM 131 mmol/L (136-145); UREA NITROGEN, BLOOD 39 mg/dL (7-18)
[2018-05-21 20:53] LABS: INR 0.91 (0.87-1.13)
[2018-05-21] MEDS: PIPERACILLIN /TAZOBACTAM 3.375 G in IV D5W 50 ML IV SCH (23:04)
--- NOTE | 2018-05-22 02:48 | NUR ---
RN MS NOTES PATIENT REMAINS IN BED, SLEEPING, AROUSED TO TOUCH, NO COMPLAINT OF PAIN OR DISCOMFORT AT THE TIME, WILL CONTINUE TO MONITOR
[2018-05-22] MEDS: HYDROCODONE/APAP 5/325MG 1 EACH TABLET PO PRN ×3 (04:54→20:34)
[2018-05-22] MEDS: PIPERACILLIN /TAZOBACTAM 3.375 G in IV D5W 50 ML IV SCH ×4 (05:07→23:24)
--- NOTE | 2018-05-22 06:27 | NUR ---
RN MS CLOSING NOTES PT IN BED, SLEEPING, EASILY AROUSED TO TOUCH, BREATHING EVEN AND UNLABORED ON ROOM AIR. ADMINISTERED NORCO 5/325MG AT 0600 AND EFFECTIVE AFTER 20 MIN. NO FURTHER COMPLAINT OF PAIN OR DISCOMFORT. IV ACCESS CHANGED TO L FA #22G PATENT AND FLUSHING. KEPT PATIENT CLEAN AND DRY DURING SHIFT, CHANGED COLOSTOMY BAG, BED IN LOWEST LOCKED POSITION, CALL LIGHT WITHIN REACH AT ALL TIME. NO SIGNIFICANT CHANGE DURING SHIFT, WILL ENDORSE TO DAY NURSE FOR KWABENA.
[2018-05-22 06:34] LABS: BASOPHILS # (AUTO) 0.1 /CMM (0.0-0.2); BASOPHILS % (AUTO) 1.3 % (0.0-2.0); EOSINOPHILS % (AUTO) 2.4 % (0.0-6.0); HEMATOCRIT 33 % (33-45); HEMOGLOBIN 11.1 g/dL (11.5-14.8); LYMPHOCYTES # (AUTO) 0.2 /CMM (0.8-4.8); LYMPHOCYTES % (AUTO) 3.2 % (20.0-44.0); MEAN CORPUSCULAR HGB CONC 33 g/dl (31.0-36.0); MEAN CORPUSCULAR VOLUME 90 fL (82-100); MONOCYTES # (AUTO) 0.4 /CMM (0.1-1.30); MONOCYTES % (AUTO) 5.1 % (2.0-12.0); NEUTROPHILS # (AUTO) 6.6 /CMM (1.8-8.9); PLATELET COUNT (AUTO) 283 /CMM (150-450); RDW COEFFICIENT OF VARIATION 13.3 (11.5-15.0); RED BLOOD CELL COUNT(AUTO) 3.71 MIL/uL (4.0-5.2); WHITE BLOOD COUNT (AUTO) 7.5 K/uL (4.3-11.0)
[2018-05-22 06:43] LABS: CHOLESTEROL 127 mg/dL (<200); HDL CHOLESTEROL 60 mg/dL (40-60); LDL 62 mg/dL (0-99); TRIGLYCERIDES 38 mg/dL (30-150)
[2018-05-22 06:50] LABS: CALCIUM, SERUM 8.8 mg/dL (8.5-10.1); CARBON DIOXIDE 23 mmol/L (21-32); CHLORIDE 98 mmol/L (98-107); CREATININE 1.3 mg/dL (0.6-1.3); GLUCOSE 91 mg/dL (74-106); MAGNESIUM 2.3 mg/dL (1.8-2.4); PHOSPHORUS 4.2 mg/dL (2.5-4.9); POTASSIUM 4.4 mmol/L (3.5-5.1); SODIUM SERUM 133 mmol/L (136-145); UREA NITROGEN, BLOOD 38 mg/dL (7-18)
[2018-05-22 08:00] VITALS: BP 129/71
--- NOTE | 2018-05-22 08:00 | NUR ---
MS CLARK AM NOTES RECEIVED PATIENT IN BED, AWAKE, A/OX4 WITH DIRECTOR OF SEARCH ENGINE MARKETING AT BEDSIDE. BREATHING EVEN AND UNLABORED ON ROOM AIR. DENIES PAIN OR DISTRESS.ATE BREAKFAST.WITH PRIVATE CG AT BEDSIDE.COLOSTOMY BAG CLEAN, IV ACCESS VIA R AC #20G PATENT AND FLUSHING. NO COMPLAINT OF PAIN OR DISCOMFORT AT THE MOMENT, BED IN LOWEST LOCKED POSITION, CALL LIGHT WITHIN REACH AT ALL TIMES, WILL CONTINUE TO MONITOR
[2018-05-22] MEDS: LOSARTAN POTASSIUM 50 MG TABLET PO SCH (08:16)
[2018-05-22] MEDS: LEVOTHYROXINE SODIUM 25 MCG TABLET PO SCH (08:16)
--- NOTE | 2018-05-22 08:17 | NUR ---
WOUND CARE CONSULT WOUND CARE RECEIVED CONSULT FOR R LAT ANKLE ULCER AND L FOOT ULCER. WOUND CARE WILL DEFER CONSULT AND ALL TREATMENT PLANS TO PODIATRY DR FERNANDEZ AT THIS TIME. ALL PRESSURE ULCER PREVENTION MEASURES ARE NOTED TO BE IN PLACE. WILL SEE PRN.
--- NOTE | 2018-05-22 10:30 | NUR ---
PT WAS PICKED UP FOR MRI OF LT ANTERIOR FOOT AND RT ANKLE.WITH STABLE V/S.PT DENIES ANY PAIN OR DISTRESS.CLARIFIED WITH DR RAWLS REGARDING PT'S LT SHOULDER SX IN 2017 AND STATED THAT PT IS OK TO HAVE MRI PROCEDURE.CONSENT AND CHECKLIST HAS BEEN SIGNED
[2018-05-22] MEDS: MULTIVIT, IRON, MIN NO. 8, FA 1 TAB PO SCH (13:52)
[2018-05-22 16:00] VITALS: BP 114/64
[2018-05-22] MEDS: LACTOBACILLUS RHAMNOSUS GG 1 EACH CAP.SPRINK PO SCH (17:27)
[2018-05-22] MEDS: ENSURE ENLIVE 237 ML LIQUID (VANILLA) PO SCH (17:55)
--- NOTE | 2018-05-22 18:37 | NUR ---
PT STILL EATING DINNER WITH [employer].DENIES PAIN OR DISTRESS.CALL LIGHT PLACED WITHIN REACH.
--- NOTE | 2018-05-22 19:15 | NUR ---
RN MS OPENING NOTES RECEIVED PATIENT IN BED AWAKE ALERT AND ORIENTED X 4, RESPIRATIONS EVEN AND UNLABORED WITH EQUAL RISE AND FALL OF CHEST, DENIES ANY PAIN AT THIS TIME, COLOSTOMY BAG INTACT AND CLEAN. IV SITE TO LEFT FA #22 INTACT AND PATENT, NO REDNESS, NO INFILTRATION PRESENT, FLUIDS OFFERED TOLERATED, LOWER EXTREMITIES OFFLOADED FOR WOUND AND SKIN MANAGEMENT. SAFETY PRECAUTIONS IN PLACE, LOW BED AND LOCKED, BED ALARM IN PLACE. ORIENTED TO STAFF AND CALL LIGHT AND KEPT WITHIN REACH, ALL NEEDS ATTENDED AT THIS TIME, WILL CONTINUE TO MONITOR,PATIENT REMAINS COMFORTABLE AT THIS TIME.
[2018-05-22 20:00] VITALS: BP 93/50
[2018-05-22] MEDS ORDERED: VANCOMYCIN 0.75 GM in IV D5W 250 ML IV SCH (20:00)
--- NOTE | 2018-05-22 20:34 | NUR ---
RN MS NOTES PATIENT COMPLAINT OF PAIN TO LOWER LEG REQUESTING FOR PAIN MEDICATION PAIN 8/10 NOTED WITH FACIAL GRIMACING AND MOANING. PATIENT ALSO REPOSITIONED FOR COMFORT. NORCO PRN GIVEN ORDERED
[2018-05-23] MEDS: HYDROCODONE/APAP 5/325MG 1 EACH TABLET PO PRN ×3 (02:31→21:16)
--- NOTE | 2018-05-23 02:31 | NUR ---
RN MS NOTES PATIENT COMPLAINT OF PAIN 10/10 BOTH LOWER EXTREMITY REQUESTING FOR PAIN MEDICATION VITAL SIGNS TAKEN B/P 106/60 , HEART RATE 74 RESP 17, 02 SAT 96% PER PATIENT HER BLOOD PRESSURE IS USUALLY ON THE LOWER SIDE ABOUT 100'S PRN NORCO GIVEN ORDERED.
--- NOTE | 2018-05-23 03:00 | NUR ---
rn ms notes wound dressings done as ordered. tolerated well. left ankle specimen collected in frig
--- NOTE | 2018-05-23 05:52 | NUR ---
RN MS NOTES PATIENT COMPLAINTS OF ITCHINESS TO HER BACK PER PATIENT APPLIES CORTISONE CREAM 10 EVERYNIGHT AT HOME AND IS ITCHY AT THIS TIME, PATIENT REQUESTING TO TRY BENADRYL. SPOKE TO JULIA CALVERT WITH NEW ORDER FOR BENADRYL 25MG PO ONCE. ORDER READ BACK AND CARRIED OUT.
[2018-05-23] MEDS: PIPERACILLIN /TAZOBACTAM 3.375 G in IV D5W 50 ML IV SCH ×2 (06:00→13:00)
[2018-05-23] MEDS ORDERED: diphenhydrAMINE HCL ELIX 25 MG/10 ML UDC PO ONE (06:00)
[2018-05-23 06:44] LABS: CALCIUM, SERUM 8.9 mg/dL (8.5-10.1); CARBON DIOXIDE 24 mmol/L (21-32); CHLORIDE 100 mmol/L (98-107); CREATININE 1.8 mg/dL (0.6-1.3); GLUCOSE 84 mg/dL (74-106); POTASSIUM 4.7 mmol/L (3.5-5.1); SODIUM SERUM 135 mmol/L (136-145); UREA NITROGEN, BLOOD 44 mg/dL (7-18)
--- NOTE | 2018-05-23 07:08 | NUR ---
RN MS CLOSING NOTES PATIENT IN BED AWAKE ALERT AND ORIENTED X 4, RESPIRATIONS EVEN AND UNLABORED WITH EQUAL RISE AND FALL OF CHEST, DENIES ANY PAIN AT THIS TIME, COLOSTOMY BAG INTACT AND CLEAN X1 BM. IV SITE TO LEFT HAND #24G INTACT AND PATENT, NO REDNESS, NO INFILTRATION PRESENT, PREVIOUS IV SITE REMOVED DUE TO LEAKING NO BLEEDING. FLUIDS OFFERED TOLERATED, LOWER EXTREMITIES OFFLOADED FOR WOUND AND SKIN MANAGEMENT DRESSING DONE TO LOWER EXT. SAFETY PRECAUTIONS IN PLACE, LOW BED AND LOCKED, BED ALARM IN PLACE.CALL LIGHT KEPT WITHIN REACH, REASSESSED IF ONCE TIME DOSE OF BENADRYL EFFECTIVE, PER PATIENT STATED " YES IM NOT ITCHY AT ANYMORE,IT RELIEVED IT." ALL NEEDS ATTENDED AT THIS TIME, WILL CONTINUE TO MONITOR AND ENDORSE TO NEXT SHIFT,PATIENT REMAINS COMFORTABLE AT THIS TIME.
[2018-05-23 08:00] VITALS: BP 126/91
--- NOTE | 2018-05-23 08:00 | NUR ---
MS CLARK AM NOTES RECEIVED PATIENT IN BED, AWAKE, A/OX4 WITH DIGITAL SOLUTION ARCHITECT AT BEDSIDE. BREATHING EVEN AND UNLABORED ON ROOM AIR. DENIES PAIN OR DISTRESS.ATE BREAKFAST.WITH PRIVATE CG AT BEDSIDE.COLOSTOMY BAG CLEAN, IV ACCESS VIA LT HAND#24G PATENT AND FLUSHING. WITH COMPLAINT OF BLE PAIN -NORCO 5/325 MG 1 TAB PO GIVEN FOR PAIN MGT.BED IN LOWEST LOCKED POSITION, CALL LIGHT WITHIN REACH AT ALL TIMES, WILL CONTINUE TO MONITOR
[2018-05-23] MEDS: MULTIVIT, IRON, MIN NO. 8, FA 1 TAB PO SCH (08:46)
[2018-05-23] MEDS: LOSARTAN POTASSIUM 50 MG TABLET PO SCH (08:46)
[2018-05-23] MEDS: LEVOTHYROXINE SODIUM 25 MCG TABLET PO SCH (08:46)
[2018-05-23] MEDS: LACTOBACILLUS RHAMNOSUS GG 1 EACH CAP.SPRINK PO SCH ×2 (08:46→18:53)
[2018-05-23] MEDS: ENSURE ENLIVE 237 ML LIQUID (VANILLA) PO SCH (08:46)
--- NOTE | 2018-05-23 15:59 | NUR ---
PT STATED THAT SHE IS ALLERGIC TO PCN AND SHE SWELLS UP ALL OVER.PT IS ON ZOSYN IV WITH NO ALLERGIC REACTION NOTED.
[2018-05-23 16:00] VITALS: BP 93/52
--- NOTE | 2018-05-23 17:30 | NUR ---
PT SITTING IN HER OWN WHEELCHAIR EATING DINNER.DENIES ANY PAIN OR DISTRESS.CALL LIGHT PLACED WITHIN REACH.
[2018-05-23] MEDS ORDERED: diphenhydrAMINE HCL 50 MG/ML VIAL IV PRN (18:00)
--- NOTE | 2018-05-23 19:30 | NUR ---
RN NOTE; RECEIVED PT IN BED AWAKE AND ALERT.BREATHING EVENLY. NO SOB. NAD .SKIN WARM AND DRY. NO C/O PAIN OR DISCOMFORT AT THIS TIME. DRESSING ON BLE C/D/I. FOR SX IN AM. PT VERBALIZED UNDERSTANDING OF THE SX AND NPO STATUS POST [place],. NEEDS ATTENDED. BED LOW LOCKED. CALL LIGHT WITHIN REACH. WILL CONT TO MONITOR ,
[2018-05-23 20:00] VITALS: BP 111/54
[2018-05-23] MEDS ORDERED: VANCOMYCIN 500 MG in IV D5W 100 ML IV SCH (20:00)
[2018-05-23] MEDS: DOXYCYCLINE HYCLATE (100 MG) 100 MG TABLET PO SCH (21:16)
[2018-05-23] MEDS: CEFTRIAXONE 1 G in IV D5W 50 ML IV SCH (21:16)
--- NOTE | 2018-05-23 21:16 | NUR ---
[facility]CO GIVEN ORDERED PER PT'S REQUEST FOR C/O BOTH FEET PAIN.
--- NOTE | 2018-05-24 06:30 | NUR ---
PT IN BED SLEEPING . BREATHING EVENLY, NO SOB. NO ACUTE DISTRESS DURING THE NIGHT. NPO FOR SX IN AM. DRESSING ON BLE REMAINED C/D/I. NEEDS ATTENDED. BED LOW LOCKED. CALL LIGHT WITHIN REACH. WILL CONT TO MONITOR AND WILL ENDORSE TO AM SHIFT FOR KWABENA
[2018-05-24] MEDS ORDERED: ANESTHESIA TRAY IN PYXIS 1 EA TRAY MC ONE (06:48)
[2018-05-24] MEDS ORDERED: LIDOCAINE HCL/PF 1% 30 ML SDV ONE (06:49)
--- NOTE | 2018-05-24 07:11 | NUR ---
PT WAS PICKED UP BY [facility] IN STABLE CONDITION.
[2018-05-24] MEDS: LEVOTHYROXINE SODIUM 25 MCG TABLET PO SCH (07:30)
[2018-05-24] MEDS ORDERED: MIDAZOLAM HCL 2 MG/2ML VIAL ONE (07:34)
[2018-05-24] MEDS ORDERED: FENTANYL PF 100MCG/2ML AMPUL ONE (07:34)
[2018-05-24 08:03] LABS: CALCIUM, SERUM 8.7 mg/dL (8.5-10.1); CARBON DIOXIDE 27 mmol/L (21-32); CHLORIDE 101 mmol/L (98-107); CREATININE 1.7 mg/dL (0.6-1.3); GLUCOSE 86 mg/dL (74-106); POTASSIUM 4.5 mmol/L (3.5-5.1); SODIUM SERUM 137 mmol/L (136-145); UREA NITROGEN, BLOOD 44 mg/dL (7-18)
[2018-05-24] MEDS ORDERED: BUPIVACAINE MPF 0.5% W/EPI INJ 30 ML VIAL ONE (08:25)
[2018-05-24] MEDS ORDERED: BUPIVACAINE 0.5 % PF 150 MG/30 ML VIAL ONE (08:25)
[2018-05-24] MEDS: MULTIVIT, IRON, MIN NO. 8, FA 1 TAB PO SCH (09:00)
[2018-05-24] MEDS: LOSARTAN POTASSIUM 50 MG TABLET PO SCH (09:00)
[2018-05-24] MEDS: DOXYCYCLINE HYCLATE (100 MG) 100 MG TABLET PO SCH (09:00)
[2018-05-24] MEDS: LACTOBACILLUS RHAMNOSUS GG 1 EACH CAP.SPRINK PO SCH ×2 (09:00→16:46)
[2018-05-24] MEDS: ENSURE ENLIVE 237 ML LIQUID (VANILLA) PO SCH (09:00)
[2018-05-24] MEDS: HYDROCODONE/APAP 5/325MG 1 EACH TABLET PO PRN ×3 (12:58→23:50)
--- NOTE | 2018-05-24 13:49 | NUR ---
NURSING NOTES PT IN BED SLEEPING . BREATHING EVENLY, NO SOB. NO ACUTE DISTRESS . NPO FOR SX IN AM. DRESSING ON BLE REMAINED C/D/I. NEEDS ATTENDED. BED LOW LOCKED. CALL LIGHT WITHIN REACH. WILL CONT TO MONITOR AND WILL ENDORSE TO NUTRITION THERAPIST PT CAME FROM SURGERY BACK TO THE FLOOR ABOUT 1030. PATIENT HAS A HEMOVAC, THAT IS IS CONNECTED TO LOW SUCTION. hEEMOVAC IS DRAINING WELL. PATIENT IS STABLE WILL CONTUR TO DEBRA AND MONITOR.
[2018-05-24 16:00] VITALS: BP 99/51
--- NOTE | 2018-05-24 18:43 | NUR ---
nursing notes patient requesting Advil. called primary doctor waiting for a call back patient is stable will continue to treat and monitor . Will endorse to next shift nurse.
--- NOTE | 2018-05-24 19:31 | NUR ---
RN MS OPENING NOTES RECEIVED PATIENT IN BED AWAKE. ALERT AND ORIENTED X3. BREATHING EVEN AND UNLABORED. NO SOB NOTED. WITH COMPLAINTS OF PAIN ON RIGHT FOOT - S/P WOUND DEBRIDEMENT. WILL GIVE PAIN MEDICATION ON NEXT SCHEDULED DOSE. IV ACCESS ON RIGHT FA #22 INTACT AND PATENT. SKIN DRY AND WARM TO TOUCH. AFEBRILE. ALL OTHER NEEDS ATTENDED TO. SAFETY MEASURES IN PLACE. CALL LIGHT WITHIN REACH. WILL CONTINUE TO MONITOR.
[2018-05-24 20:00] VITALS: BP 109/63
[2018-05-24] MEDS ORDERED: HYDROGEL DRESSING 90 GM TUBE TP PRN (20:30)
--- NOTE | 2018-05-24 20:31 | NUR ---
RN MS NOTES PATIENT'S WOUND VAC THAT WAS PLACED TODAY BY DR. PANDEY KEPT BEEPING AND SAYING "BLOCKAGE." INSPECTED TUBINGS FOR KINKS OR LEAKAGE, NONE NOTED, HOWEVER WHEN INSPECTED FURTHER, THERE WAS A POOL OF DRY BLOOD WHERE THE WOUND VAC WAS PLACED, PROBABLY CAUSING THE BLOCKAGE. PAGED DR. PANDEY AND MADE AWARE OF THE SITUATION. PER DR. PANDEY, REMOVE THE WOUND VAC, APPLY HYDROGEL ON THE WOUND SITE, AND COVER WITH DRY DRESSING. HE WILL ALSO SEE PATIENT TOMORROW. ORDERS NOTED, AND CARRIED OUT.
[2018-05-24] MEDS: CEFTRIAXONE 1 G in IV D5W 50 ML IV SCH (20:46)
--- NOTE | 2018-05-24 20:58 | NUR ---
RN MS NOTES PATIENT REQUESTED FOR ADVIL SINCE NORCO DOES NOT HELP WITH HER PAIN ON THE RIGHT FOOT. PER PATIENT ADVIL WORKS BETTER FOR HER, SHE HAS TRIED THIS IN THE PAST. PAGED ASSOCIATE PROFESSOR OF PHILOSOPHY JOLENE DUMONT. PER JOLENE DUMONT, OK TO GIVE ADVIL 200MG PO Q4H FOR PAIN. ORDER NOTED AND CARRIED OUT.
[2018-05-24] MEDS: DOXYCYCLINE 100 MG in IV NS 0.9% 100 ML IV SCH (21:28)
[2018-05-24] MEDS: IBUPROFEN 200 MG TABLET PO PRN (21:44)
[2018-05-25] MEDS: IBUPROFEN 200 MG TABLET PO PRN ×4 (02:23→20:17)
--- NOTE | 2018-05-25 05:01 | NUR ---
RN MS NOTES PATIENT APPEARED TO BE IN PAIN DESPITE PAIN MEDICATIONS GIVEN. PATIENT WAS CRYING, MOANING, HAD FACIAL GRIMACING. PER PATIENT, THERE IS A LOT OF PAIN ON THE RIGHT FOOT WITH 10/10 ON A PAIN SCALE. PAGED CHEMIST STEROIDS JOLENE DUMONT FOR AN ALTERNATIVE PAIN MEDICATION. INFORMED WILFRIDO FERNÁNDEZ THAT NONE OF THE PAIN MEDICATIONS IS HELPING PATIENT. PER WILFRIDO FERNÁNDEZ, GIVE MORPHINE 2MG IV X1 NOW. INFORMED WILFRIDO FERNÁNDEZ THAT PATIENT HAS HAD LOW BLOOD PRESSURE, WITH 109/63 BEING THE MOST RECENT ONE. PER WILFRIDO FERNNÁDEZ, OK TO GIVE MORPHINE. ORDER NOTED AND CARRIED OUT.
--- NOTE | 2018-05-25 05:05 | NUR ---
RN MS NOTES INFORMED PATIENT THAT I WAS ABLE TO GET AN ORDER FOR MORPHINE 2MG IV X1 NOW FOR HER PAIN ON THE RIGHT FOOT. PER PATIENT, SHE WOULD LIKE TO WAIT LATER ON FOR THE MORPHINE. ALSO PER PATIENT, SHE IS OK WITH THE ADVIL PRN FOR NOW. ORDER FOR MORPHINE 2MG IV X1 NOW NOT CARRIED OUT.
--- NOTE | 2018-05-25 06:38 | NUR ---
RN MS CLOSING NOTES PATIENT IN BED AWAKE. ALERT AND ORIENTED X3. NO ACUTE CHANGES THROUGHOUT SHIFT. BREATHING EVEN AND UNLABORED. NO SOB NOTED. HAS 02 AT 2 LITERS VIA NC FOR SUPPLEMENT POST SURGERY, BUT CAN TOLERATE ROOM AIR. WITH COMPLAINTS OF PAIN ON RIGHT FOOT - S/P WOUND DEBRIDEMENT. PAIN MEDICATION GIVEN ORDERED. IV ACCESS ON RIGHT FA #22 INTACT AND PATENT. SKIN DRY AND WARM TO TOUCH. AFEBRILE. KEPT CLEAN, DRY AND COMFORTABLE. ALL OTHER NEEDS ATTENDED TO. SAFETY MEASURES IN PLACE. CALL LIGHT WITHIN REACH. WILL ENDORSE TO ONCOMING NURSE FOR CONTINUITY OF CARE.
[2018-05-25 07:13] LABS: BASOPHILS % (AUTO) 0.6 % (0.0-2.0); EOSINOPHILS % (AUTO) 4.5 % (0.0-6.0); HEMATOCRIT 28 % (33-45); HEMOGLOBIN 9.7 g/dL (11.5-14.8); LYMPHOCYTES # (AUTO) 0.4 /CMM (0.8-4.8); LYMPHOCYTES % (AUTO) 6.3 % (20.0-44.0); MEAN CORPUSCULAR HGB CONC 34 g/dl (31.0-36.0); MEAN CORPUSCULAR VOLUME 89 fL (82-100); MONOCYTES # (AUTO) 0.9 /CMM (0.1-1.30); MONOCYTES % (AUTO) 12.5 % (2.0-12.0); NEUTROPHILS # (AUTO) 5.4 /CMM (1.8-8.9); NEUTROPHILS % (AUTO) 76.1 % (43.0-81.0); PLATELET COUNT (AUTO) 249 /CMM (150-450); RED BLOOD CELL COUNT(AUTO) 3.18 MIL/uL (4.0-5.2); WHITE BLOOD COUNT (AUTO) 7.1 K/uL (4.3-11.0)
[2018-05-25 07:31] LABS: CALCIUM, SERUM 6.6 mg/dL (8.5-10.1); CARBON DIOXIDE 25 mmol/L (21-32); CHLORIDE 102 mmol/L (98-107); CREATININE 1.6 mg/dL (0.6-1.3); GLUCOSE 80 mg/dL (74-106); POTASSIUM 4.7 mmol/L (3.5-5.1); SODIUM SERUM 136 mmol/L (136-145); UREA NITROGEN, BLOOD 40 mg/dL (7-18)
--- NOTE | 2018-05-25 07:42 | NUR ---
MS RN NOTES PATIENT RECEIVED RESTING INSIDE ROOM. SLEEPING, EASILY AROUSABLE THROUGH VERBAL AND TACTILE STIMULI. BREATHING EVEN AND UNLABORED. NO SOB OR ACUTE DISTRESS NOTED. NO CHANGES IN LOC NOTED. WOUND VAC AT BEDSIDE. RECIEVED REPORT FROM PREVIOUS SHIFT THAT WOUND VAC WAS NOT DRAINING. DR. FERNANDEZ TO ASSESS TODAY. DRY DRESSING IN PLACE ON RLE. WILL CONTINUE TO MONITOR. BED LOCKED AND IN LOW POSITION. BILATERAL UPPER SIDE RAILS UP AND LOCKED. CALL LIGHT WITHIN EASY REACH
[2018-05-25 08:00] VITALS: BP 121/65
[2018-05-25] MEDS: DOXYCYCLINE 100 MG in IV NS 0.9% 100 ML IV SCH ×2 (08:03→21:31)
[2018-05-25] MEDS: LEVOTHYROXINE SODIUM 25 MCG TABLET PO SCH (08:03)
[2018-05-25] MEDS: LOSARTAN POTASSIUM 50 MG TABLET PO SCH (08:03)
[2018-05-25] MEDS: MULTIVIT, IRON, MIN NO. 8, FA 1 TAB PO SCH (08:04)
[2018-05-25] MEDS: ENSURE ENLIVE 237 ML LIQUID (VANILLA) PO SCH (08:04)
[2018-05-25] MEDS: LACTOBACILLUS RHAMNOSUS GG 1 EACH CAP.SPRINK PO SCH ×2 (08:04→16:31)
[2018-05-25] MEDS ORDERED: IBUPROFEN 200 MG TABLET PO ONE (10:40)
--- NOTE | 2018-05-25 10:45 | NUR ---
MS RN NOTES PATIENT SEEN AND EXAMINED BY DR. FERNANDEZ, TO APPLY WOUND VAC ON RLE. MD MADE AWARE THAT LAST IBUPROFEN ADMINISTERED AT 0801. MD OFFERED NORCO TO PATIENT PRIOR TO WOUND CARE BUT PATIENT VERBALIZED SHE DOESNT WANT NORCO OR ANY OTHER PAIN MEDICATION, SHE ONLY PREFERS IBUPROFEN. DR. FERNANDEZ WITH ORDER TO ADMINISTER IBUPROFEN 200MG PO X 1 DOSE. PATIENT AWARE AND VERBALIZED UNDERSTANDING. MEDICATION ADMINISTERED ORDERED. WILL CONTINUE TO MONITOR
--- NOTE | 2018-05-25 11:30 | NUR ---
MS RN NOTES BLE WOUND DRESSING CHANGES DONE BY DR. FERNANDEZ. RIGHT ANKLE WOUND VAC CONNECTED AT 125 mm/Hg CONTINUOUS. FLOATED BLE WITH PILLOWS. WILL CONTINUE TO MONITOR.
--- NOTE | 2018-05-25 11:45 | NUR ---
MS RN NOTES NOTED STOOL LEAKAGE ON COLOSTOMY, COLOSTOMY BAG REPLACED, NO SKIN BREAKDOWN NOTED ON SITE SURROUNDING STOMA. WILL CONTINUE TO MONITOR
[2018-05-25 16:00] VITALS: BP 128/71
--- NOTE | 2018-05-25 18:29 | NUR ---
MS RN NOTES PATIENT RESTING INSIDE ROOM. AWAKE, ALERT AND ORIENTED. VERBALLY RESPONSIVE AND RESPONDS TO VERBAL AND TACTILE STIMULI. BREATHING EVEN AND UNLABORED. NO SOB OR ACUTE DISTRESS NOTED. NO CHANGES IN LOC NOTED. PATIENT CALM AND RELAXED. IV INTACT AND PATENT. WILL ENDORSE TO INCOMING SHIFT FOR KWABENA. BED LOCKED AND IN LOW POSITION. BILATERAL UPPER SIDE RAILS UP AND LOCKED. CALL LIGHT WITHIN EASY REACH
--- NOTE | 2018-05-25 19:30 | NUR ---
MS RN OPENING NOTES PATIENT RECEIVED RESTING IN BED, AWAKE, A & O X 2-3, FORGETFUL AT TIMES. BREATHING EVEN AND UNLABORED. NO SOB OR ACUTE DISTRESS NOTED. NO CHANGES IN LOC NOTED. NO C/O PAIN VERBALIZED. WOUND VAC IN PLACE TO RIGHT FOOT, FUNCTIONING WELL. DRY DRESSING IN PLACE ON RLE & LLE. IV ACCESS TO RAC, G # 20 & RFA G # 22, SL, INTACT PATENT. NO S/S OF INFILTRATION NOTED. COLOSTOMY BAG IN PLACE, WILL CONTINUE TO MONITOR. BED LOCKED AND IN LOW POSITION. BILATERAL UPPER SIDE RAILS UP AND LOCKED. BED ALARM ON. CALL LIGHT WITHIN EASY REACH. WILL MONITOR CLOSELY.
[2018-05-25 19:59] VITALS: BP 140/72
[2018-05-25] MEDS: CEFTRIAXONE 1 G in IV D5W 50 ML IV SCH (20:17)
--- NOTE | 2018-05-25 20:17 | NUR ---
PRN MOTRIN GIVEN PATIENT HAD C/O GENERALIZED BODY ACHE & WANTED TO TAKE MOTRIN ONLY. PRN MOTRIN GIVEN ORDERED. WILL REASSESS FOR EFFECTIVENESS.
[2018-05-25 20:22] VITALS: BP 140/72
--- NOTE | 2018-05-26 00:15 | NUR ---
MS RN NOTE PATIENT NOTED TO BE SLEEPING COMFORTABLY, NO KWABENA NOTED.
--- NOTE | 2018-05-26 06:37 | NUR ---
MS RN CLOSING NOTES PATIENT SLEPT WELL AT NIGHT, A & O X 2-3, FORGETFUL AT TIMES. BREATHING EVEN AND UNLABORED. NO SOB OR ACUTE DISTRESS NOTED. NO CHANGES IN LOC NOTED. NO C/O PAIN VERBALIZED. WOUND VAC IN PLACE TO RIGHT FOOT, FUNCTIONING WELL. DRY DRESSING IN PLACE ON RLE & LLE. NO DRAINAGE NOTED. IV ACCESS TO RAC, G # 20 & RFA G # 22, SL, INTACT PATENT. NO S/S OF INFILTRATION NOTED. COLOSTOMY BAG IN PLACE, EMPTIED IT, NO NEED TO CHANGE THE COLOSTOMY BAG AT THIS TIME. BED LOCKED AND IN LOW POSITION. BILATERAL UPPER SIDE RAILS UP AND LOCKED. BED ALARM ON. CALL LIGHT WITHIN EASY REACH. WILL ENDORSE TO AM RN.
[2018-05-26 07:17] LABS: CALCIUM, SERUM 8.7 mg/dL (8.5-10.1); CARBON DIOXIDE 24 mmol/L (21-32); CHLORIDE 102 mmol/L (98-107); CREATININE 1.2 mg/dL (0.6-1.3); GLUCOSE 85 mg/dL (74-106); POTASSIUM 4.3 mmol/L (3.5-5.1); SODIUM SERUM 138 mmol/L (136-145); UREA NITROGEN, BLOOD 41 mg/dL (7-18)
--- NOTE | 2018-05-26 07:45 | NUR ---
MS RN OPENING NOTES RECEIVED PT LAYING IN BED WITH HOB ELEVATED. PT IS A/O X2, AFEBRILE. RESPIRATIONS ARE EVEN AND UNLABORED, NOT IN ANY ACUTE DISTRESS NOTED. NO FACIAL GRIMACING OR MOANING NOTED. NO SOB, N/V NOTED. IV TO RAC/RFA INTACT, NO INFILTRATION NOTED. DRESSING KEPT CLEAN AND DRY. WOUND VAC NOTED TO RIGHT ANKLE INTACT, NO LEAKAGE NOTED, TUBING FREE OF KINKS. NO DRAINAGE NOTED. SAFETY MEASURES ARE IN PLACE. BED IS IN ITS LOWEST AND LOCKED POSITION. WILL CONTINUE TO MONITOR THROUGHOUT SHIFT FOR CONTINUITY OF CARE.
[2018-05-26 08:00] VITALS: BP 160/80
[2018-05-26] MEDS: MULTIVIT, IRON, MIN NO. 8, FA 1 TAB PO SCH (08:56)
[2018-05-26] MEDS: ENSURE ENLIVE 237 ML LIQUID (VANILLA) PO SCH (08:56)
[2018-05-26] MEDS: LACTOBACILLUS RHAMNOSUS GG 1 EACH CAP.SPRINK PO SCH ×2 (08:56→16:16)
[2018-05-26] MEDS: LOSARTAN POTASSIUM 50 MG TABLET PO SCH (08:57)
[2018-05-26] MEDS ORDERED: DOXYCYCLINE HYCLATE (100 MG) 100 MG TABLET PO SCH (09:00)
[2018-05-26] MEDS: LEVOTHYROXINE SODIUM 25 MCG TABLET PO SCH (09:01)
[2018-05-26] MEDS: IBUPROFEN 200 MG TABLET PO PRN ×3 (10:06→20:15)
--- NOTE | 2018-05-26 13:00 | NUR ---
MS RN NOTES-- INITIATED CONTACT ISOLATION FOR MRSA TO BLE WOUNDS.
[2018-05-26 16:00] VITALS: BP 138/70
[2018-05-26] MEDS ORDERED: LEVOFLOXACIN (500MG) 500 MG TABLET PO SCH (16:00)
--- NOTE | 2018-05-26 18:32 | NUR ---
MS RN CLOSING NOTES NEEDS ANTICIPATED. PT REMAINS A/O X3, AFEBRILE. RESPIRATIONS ARE EVEN AND UNLABORED, NOT IN ANY ACUTE DISTRESS NOTED. DENIES ANY SOB, N/V. PER PT, MOTRIN IS NOTED TO BE EFFECTIVE. IV ACCESS INTACT, NO INFILTRATION NOTED. ENCOURAGED FLUIDS TOLERATED. SAFETY MEASURES ARE IN PLACE. BED IS IN ITS LOWEST AND LOCKED POSITION. CALL LIGHT IS LEFT WITHIN REACH. WILL ENDORSE TO NEXT SHIFT FOR CONTINUITY OF CARE.
--- NOTE | 2018-05-26 19:50 | NUR ---
MS/RN OPENING NOTES PT RECEIVED SITTING UP IN BED READING NEWSPAPER. ON ROOM AIR, BREATHING EVEN AND UNLABORED. DENIES SOB AND PAIN AT THIS TIME. IN NO ACUTE DISTRESS. WOUND VAC TO RLE IN PLACE, NO SIGNS OF LEAKING, RUNNING AT 125MMHG. BLE DRESSING C/D/I. IV TO RAC AND RFA PATENT AND INTACT. BED IN LOW/LOCKED POSITION WITH BILATERAL UPPER SIDE RAILS IN PLACE. CALL LIGHT IN REACH. WILL CONTINUE TO MONITOR
[2018-05-26 20:00] VITALS: BP 141/71
[2018-05-26] MEDS: LINEZOLID 600 MG TABLET PO SCH (20:15)
--- NOTE | 2018-05-26 20:20 | NUR ---
MS/RN NOTES PT C/O BILATERAL FOOT PAIN. REQUESTING MOTRIN. ADMINISTERED ORDERED.
[2018-05-27] MEDS: IBUPROFEN 200 MG TABLET PO PRN ×2 (05:07→08:52)
--- NOTE | 2018-05-27 05:10 | NUR ---
MS/RN NOTES PT C/O BILATERAL FOOT PAIN. REQUESTING MOTRIN OR ADVIL. ADMINISTERED PRN MOTRIN ORDERED.
--- NOTE | 2018-05-27 06:46 | NUR ---
MS/RN CLOSING NOTES PT ASLEEP, OPENS EYES SPONTANEOUSLY TO NAME. ON ROOM AIR, BREATHING EVEN AND UNLABORED. DENIES SOB AND PAIN AT THIS TIME. PAIN MANAGED WELL WITH PRN MOTRIN. IN NO ACUTE DISTRESS. BLE DRESSING C/D/I. WOUND VAC TO RLE IN PLACE, NO SIGNS OF LEAKING, RUNNING AT 125MMHG. NO OUTPUT NOTED. IV TO RAC AND RFA PATENT AND INTACT. NO SIGNIFICANT CHANGES OVERNIGHT. TURNED/REPOSITIONED Q2H, HEELS OFFLOADED. ALL NEEDS MET. BED IN LOW/LOCKED POSITION WITH BILATERAL UPPER SIDE RAILS IN PLACE. CALL LIGHT IN REACH. WILL ENDORSE TO DAY SHIFT RN KWABENA.
[2018-05-27 07:01] LABS: CALCIUM, SERUM 8.8 mg/dL (8.5-10.1); CARBON DIOXIDE 26 mmol/L (21-32); CHLORIDE 99 mmol/L (98-107); CREATININE 1.3 mg/dL (0.6-1.3); GLUCOSE 85 mg/dL (74-106); POTASSIUM 4.4 mmol/L (3.5-5.1); SODIUM SERUM 136 mmol/L (136-145); UREA NITROGEN, BLOOD 36 mg/dL (7-18)
--- NOTE | 2018-05-27 07:25 | NUR ---
MS RN OPENING NOTES RECEIVED PT LAYING IN BED WITH HOB ELEVATED. PT IS A/O X3, AFEBRILE. RESPIRATIONS ARE EVEN AND UNLABORED, NOT IN ANY ACUTE DISTRESS NOTED. NO FACIAL GRIMACING OR MOANING NOTED. NO SOB, N/V NOTED. IV TO RAC/RFA INTACT, NO INFILTRATION NOTED. DRESSING KEPT CLEAN AND DRY. WOUND VAC NOTED TO RIGHT ANKLE INTACT, NO LEAKAGE NOTED, TUBING FREE OF KINKS. LITTLE TO NO DRAINAGE NOTED. SAFETY MEASURES ARE IN PLACE. BED IS IN ITS LOWEST AND LOCKED POSITION. WILL CONTINUE TO MONITOR THROUGHOUT SHIFT FOR CONTINUITY OF CARE.
[2018-05-27 08:00] VITALS: BP 145/73
[2018-05-27] MEDS: MULTIVIT, IRON, MIN NO. 8, FA 1 TAB PO SCH (08:14)
[2018-05-27 08:15] VITALS: BP 145/73
[2018-05-27] MEDS: LEVOTHYROXINE SODIUM 25 MCG TABLET PO SCH (08:15)
[2018-05-27] MEDS: LACTOBACILLUS RHAMNOSUS GG 1 EACH CAP.SPRINK PO SCH (08:15)
[2018-05-27] MEDS: LINEZOLID 600 MG TABLET PO SCH (08:15)
[2018-05-27] MEDS: LOSARTAN POTASSIUM 50 MG TABLET PO SCH (08:15)
[2018-05-27] MEDS: ENSURE ENLIVE 237 ML LIQUID (VANILLA) PO SCH (08:17)
--- NOTE | 2018-05-27 09:46 | NUR ---
MS RN NOTES-- PT REFUSES TO EAT BREAKFAST BECAUSE SHE "DIDNT GET ENOUGH SLEEP LAST NIGHT. I WOULD RATHER SLEEP." ENCOURAGED PT TO EAT BREAKFAST THEN GOING BACK TO SLEEP TO ENHANCE WOUND HEALING AND GAIN NUTRIENTS. PT STATED "NO I JUST WANT TO SLEEP." WILL CONTINUE TO MONITOR.
[2018-05-27] MEDS ORDERED: LEVO500T2 PO (11:53)
[2018-05-27] MEDS ORDERED: DAPT350V IV (11:53)
--- NOTE | 2018-05-27 13:00 | NUR ---
MS CLARK NOTES-- PICC LINE INSERTION DONE, PT TOLERATED PROCEDURE WELL. PICC LINE W/ DOUBLE LUMEN TO ANYA 30CM LONG, 5FR. DRESSING IS KEPT CLEAN AND DRY.
--- NOTE | 2018-05-27 16:15 | NUR ---
MS CUSTOMER GREETER NOTE PT DISCHARGED TP JOSE ANTONIO LUONG VIA [facility] IN STABLE CONDITION ACCOMPANIED BY EMT PERSONNEL. REPORT GIVEN TO EDUARDO KHOURY. PT IS A/O X3, AFEBRILE. RESPIRATIONS ARE EVEN AND UNLABORED, NOT IN ANY ACUTE DISTRESS NOTED. PT STATES SHE DOES NOT WANT ANY PAIN MEDICATION AT THIS TIME. NO C/O SOB, N/V. WOUND VAC D/C AND CHANGED DRESSINGS TO BLE WOUNDS, TOLERATED WELL. PICC LINE TO ANYA INTACT, NO INFILTRATION NOTED. ID BAND REMOVED. DRESSING KEPT CLEAN AND DRY. EXPLAINED DISCHARGE PAPERWORK TO PT WITH VERBAL AND WRITTEN AGREEMENT. ALL BELONGINGS SEND WITH PT. BEDSIDE REPORT GIVEN TO EMT PERSONNEL. PT LEFT IN STABLE CONDITION.
== END 2018-05-27 16:15 | DRG 477 ==
LOC: WOUND3 14:39
PROVIDERS: ADMIT Podiatrist Foot & Ankle Surgery; ATTEND Family Medicine
PROC: 2W1LX6Z Compression of Right Lower Extremity using Pressure Dressing (ICD-10-PCS; 2018-05-24)
PROC: 0LBS0ZZ Excision of Right Ankle Tendon, Open Approach (ICD-10-PCS; 2018-05-24)
PROC: 0QBM0ZX Excision of Left Tarsal, Open Approach, Diagnostic (ICD-10-PCS; principal; 2018-05-24 07:30)
PROC: 02HV33Z Insertion of Infusion Device into Superior Vena Cava, Percutaneous Approach (ICD-10-PCS; 2018-05-27)
PROC: B548ZZA Ultrasonography of Superior Vena Cava, Guidance (ICD-10-PCS; 2018-05-27)
DX: M86.9 Osteomyelitis, unspecified (principal); N17.0 Acute kidney failure with tubular necrosis; L97.329 Non-pressure chronic ulcer of left ankle with unspecified severity; E87.1 Hypo-osmolality and hyponatremia; L03.116 Cellulitis of left lower limb; L97.318 Non-pressure chronic ulcer of right ankle with other specified severity; L03.115 Cellulitis of right lower limb; E03.9 Hypothyroidism, unspecified; M19.90 Unspecified osteoarthritis, unspecified site; I10 Essential (primary) hypertension; L30.4 Erythema intertrigo; I73.9 Peripheral vascular disease, unspecified; F03.90 Unspecified dementia, unspecified severity, without behavioral disturbance, psychotic disturbance, mood disturbance, and anxiety; B96.20 Unspecified Escherichia coli [E. coli] as the cause of diseases classified elsewhere; B95.62 Methicillin resistant Staphylococcus aureus infection as the cause of diseases classified elsewhere
CPT/HCPCS: 36415; 36569; 73718-TC; 73721-TC; 80048-TC; 80061-TC; 80202-TC; 83735-TC; 84100-TC; 85025-TC; 85610-TC; 87070-TC; 87081-TC; 87186-TC; 88304-TC; 88305-TC; 88311-TC; 88312-TC; A4606; A6248; A6402; A6403; C1751; J0696; J2250; J2405; J2543; J2704; J3010; J3370; J3490; J7030; J7050; J7060; Q0163; Z7610

== ENCOUNTER 2018-08-11 16:44 | Inpatient (IN) | payer MEDICARE, BC ==
[~2018-08-11] VITALS: Ht 162.6 cm; Wt 47.6 kg
[~2018-08-11 16:44] MED LIST changes: +ASCO-340 PO; +BALS60OI TP; +DAPT350V IV; -Docusate Sodium PO; -ENOX40DI SQ; -HYDR-3974 PO; +IBUP-1953 PO; -LACT1CAP72 PO; +LEVO25TA9 PO; +LEVO500T2 PO; +LOSA50TA39 PO; +MULT-33 PO; +PROT946L PO; -Sennosides PO
--- NOTE | 2018-08-11 16:55 | NUR ---
PT ANH FROM [facility], HERE FOR RT HEEL NON HEALING WOUND. SENT BY [employer] DEPARTMENT CHAIR FOR POSSIBLE ADMISSION FOR WOUND DEBRIDEMENT. PT PRESENT W/ RUE PICC LINE. STABLE CONDITION. AFEBRILE. AWAITING MD JADE.
--- NOTE | 2018-08-11 17:20 | NUR ---
DR MATTA AT BEDSIDE FOR EVAL.
--- NOTE | 2018-08-11 17:35 | NUR ---
MAINTENANCE INSTRUCTOR AT BEDSIDE FOR BLOOD DRAW.
[2018-08-11 17:41] LABS: BASOPHILS % (AUTO) 0.5 % (0.0-2.0); EOSINOPHILS % (AUTO) 5.8 % (0.0-6.0); HEMATOCRIT 30 % (33-45); HEMOGLOBIN 9.9 g/dL (11.5-14.8); LYMPHOCYTES # (AUTO) 0.5 /CMM (0.8-4.8); LYMPHOCYTES % (AUTO) 7.4 % (20.0-44.0); MEAN CORPUSCULAR HGB CONC 33 g/dl (31.0-36.0); MEAN CORPUSCULAR VOLUME 84 fL (82-100); MONOCYTES # (AUTO) 0.9 /CMM (0.1-1.30); MONOCYTES % (AUTO) 13.3 % (2.0-12.0); PLATELET COUNT (AUTO) 197 /CMM (150-450); RED BLOOD CELL COUNT(AUTO) 3.62 MIL/uL (4.0-5.2); WHITE BLOOD COUNT (AUTO) 6.8 K/uL (4.3-11.0)
[2018-08-11] MEDS ORDERED: LEVO500T90 PO (17:42)
[2018-08-11] MEDS ORDERED: BALS60OI TP (17:42)
[2018-08-11] MEDS ORDERED: DAPT350V IV (17:42)
[2018-08-11] MEDS ORDERED: TRAM50TA2 PO (17:42)
[2018-08-11] MEDS ORDERED: ASPI-1169 PO (17:42)
[2018-08-11 17:54] LABS: CALCIUM, SERUM 8.4 mg/dL (8.5-10.1); CARBON DIOXIDE 24 mmol/L (21-32); CHLORIDE 103 mmol/L (98-107); CREATININE 1.5 mg/dL (0.6-1.3); GLUCOSE 93 mg/dL (74-106); POTASSIUM 4.9 mmol/L (3.5-5.1); SODIUM SERUM 136 mmol/L (136-145); UREA NITROGEN, BLOOD 54 mg/dL (7-18)
[2018-08-11 18:00] LABS: ALANINE AMINOTRANSFERASE 17 U/L (12-78); ALBUMIN 2.8 g/dL (3.4-5.0); ALKALINE PHOSPHATASE 71 U/L (46-116); ASPARTATE AMINOTRANSFERASE 24 U/L (15-37); BILIRUBIN,DIRECT 0.1 mg/dL (0.0-0.2); BILIRUBIN,TOTAL 0.3 mg/dL (0.2-1.0); TOTAL PROTEIN, SERUM 6.8 g/dL (6.4-8.2)
[2018-08-11] MEDS ORDERED: IBUPROFEN 600 MG TABLET PO ONE ×2 (18:41→19:00)
--- NOTE | 2018-08-11 18:55 | NUR ---
REPORT GIVEN TO PARKER CLARK FOR KWABENA. AWAITING TRANSFER TO FLOOR.
--- NOTE | 2018-08-11 19:30 | NUR ---
RN ADMITTING NOTES Pt ARRIVED TO THE FLOOR VIA GURNEY. A/OX3, VERBAL, ABLE TO MAKE NEEDS KNOWN. HELPED TRANSFER Pt TO THE ROOM BED SAFELY. NO S/S OF ACUTE DISTRESS OR SOB NOTED. Pt DOES C/O FOOT AND JOINT PAIN WHEN MOVED OR MOVING TO REPOSITION, BUT SAYS ITS FINE ONCE SHE STAYS PUT IN BED. DID NOT ASK FOR PAIN MEDS. WAITING FOR MD ORDERS. IV ACCESS ON ANYA PICC LINE. SAFETY MEASURES IN PLACE. BED LOW, LOCKED, HOB ELEVATED, SIDE RAILS UP, CALL LIGHT AND BEDSIDE TABLE WITHIN REACH. WILL CONTINUE TO MONITOR Pt's CONDITION AND SAFETY THROUGHOUT THE NIGHT.
[2018-08-11 20:00] VITALS: BP 129/77
--- NOTE | 2018-08-11 21:20 | NUR ---
RN NOTES: PT REFUSING FLU VACCINE, EDUCATION PROVIDED TO THE PT, PT STATED SHE RECEIVED PNEUMOCOCCAL VACCINE BUT UNABLE TO RECALL DATE, INFORMED ASSIGNED RN, TO F/U WITH PAPER WORKS FROM [facility]
--- NOTE | 2018-08-11 22:36 | NUR ---
RN NOTES MD ORDER FOR PAIN MED GIVEN DILAUDID 0.5MG IV Q3H PRN
[2018-08-11] MEDS: HYDROMORPHONE INJ 2 MG/ML DISP.SYRIN IV PRN (23:05)
[2018-08-12] VITALS: BP 129/77
[2018-08-12] MEDS ORDERED: ONDANSETRON HCL/PF 4 MG/2 ML VIAL IVP PRN (00:30)
[2018-08-12] MEDS ORDERED: MAG HYDROX/AL HYDROX/SIMETH 30 ML UDC PO PRN (00:30)
[2018-08-12] MEDS ORDERED: Z GUARD REMEDY 2 OZ OINT TP PRN (00:30)
[2018-08-12] MEDS ORDERED: ACETAMINOPHEN 325 MG TABLET PO PRN (00:30)
[2018-08-12] MEDS ORDERED: ZOLPIDEM TARTRATE 5 MG TABLET PO PRN (00:30)
[2018-08-12] MEDS: IV NS 0.9% 1,000 ML IV PRN (00:39)
--- NOTE | 2018-08-12 01:10 | NUR ---
RN NOTES INFORMED DR HALL OF Pt's REQUEST FOR TRAMADOL OR IBUPROFEN FOR PAIN MGMT. PER Pt's HOME MED LIST Pt TAKES TRAMADOL 50MG Q8H PRN & IBUPROFEN 400MG Q8H PRN. PER DR HALL SAID OK TO CONTINUE BOTH MEDS HERE. WILL CARRY OUT ORDER.
[2018-08-12] MEDS: TRAMADOL HCL 50 MG TABLET PO PRN ×3 (04:37→23:52)
--- NOTE | 2018-08-12 06:22 | NUR ---
RN CLOSING NOTES NO SIGNIFICANT CHANGES IN Pt's CONDITION. Pt IS RESTING IN BED. RESPIRATIONS EVEN AND UNLABORED. REMAINS STABLE PER BASELINE. NO S/S OF ACUTE DISTRESS OR SOB NOTED DURING THE NIGHT. ALL NEEDS MET AND ATTENDED TO. SAFETY MEASURES IN PLACE. WILL ENDORSE TO DAYSHIFT RN FOR Pt's KWABENA.
--- NOTE | 2018-08-12 07:10 | NUR ---
MS RN OPENING NOTE RECEIVED PATIENT IN BED. SLEEPING, EASILY AROUSED WITH VERBAL STIMULI. ORIENTED X3. ON ROOM AIR, TOLERATING WELL. IN NO APPARENT DISTRESS OR DISCOMFORT AT THIS TIME. RESPIRATIONS EVEN AND UNLABORED. DENIES PAIN AND SOB AT THIS TIME. PATIENT USES DIAPER FOR ELIMINATION. COLOSTOMY BAG IN PLACE, CLEAN, PATENT AND INTACT. RIGHT UPPER ARM PICC LINE IN PLACE, WITH FLUIDS RUNNING AT 75ML/HR. PATIENT KEPT CLEAN AND COMFORTABLE. ALL NEEDS ATTENDED, SAFETY MEASURES IN PLACE, BED IN LOW LOCKED POSITION, SIDE RAILS UP X2, CALL LIGHT WITHIN EASY REACH. WILL CONTINUE TO MONITOR.
[2018-08-12 08:00] VITALS: BP 134/83
[2018-08-12] MEDS: IBUPROFEN 400 MG TABLET PO PRN ×2 (09:11→17:53)
[2018-08-12 16:00] VITALS: BP 121/74
--- NOTE | 2018-08-12 18:52 | NUR ---
MS RN CLOSING NOTE PATIENT IN BED. SLEEPING, EASILY AROUSED WITH VERBAL STIMULI. ORIENTED X3, FORGETFUL AT TIMES. ON ROOM AIR, TOLERATING WELL. IN NO APPARENT DISTRESS OR DISCOMFORT AT THIS TIME. RESPIRATIONS EVEN AND UNLABORED. DENIES PAIN AND SOB AT THIS TIME. PATIENT USES DIAPER FOR ELIMINATION. COLOSTOMY BAG IN PLACE, CHANGED, CLEAN, PATENT AND INTACT. RIGHT UPPER ARM PICC LINE IN PLACE, WITH FLUIDS RUNNING AT 75ML/HR, PATENT AND INTACT. PATIENT KEPT CLEAN AND COMFORTABLE. ALL NEEDS ATTENDED, SAFETY MEASURES IN PLACE, BED IN LOW LOCKED POSITION, SIDE RAILS UP X2, CALL LIGHT WITHIN EASY REACH. WILL ENDORSE TO PM NURSE FOR KWABENA.
--- NOTE | 2018-08-12 19:00 | NUR ---
MS RN OPENING NOTE RECEIVED PATIENT SITTING UP IN BED, WATCHING TV. ALERT, ORIENTED X3. ON ROOM AIR, TOLERATING WELL. IN NO APPARENT DISTRESS OR DISCOMFORT AT THIS TIME. RESPIRATIONS EVEN AND UNLABORED. DENIES PAIN AND SOB AT THIS TIME. COLOSTOMY BAG IN PLACE, CLEAN, PATENT AND INTACT. RIGHT UPPER ARM PICC LINE IN PLACE, WITH FLUIDS RUNNING AT 75ML/HR. SAFETY MEASURES IN PLACE. BED IN LOW LOCKED POSITION, SIDE RAILS UP X2, CALL LIGHT WITHIN EASY REACH. WILL CONTINUE TO MONITOR ACCORDINGLY.
[2018-08-12 20:00] VITALS: BP 134/73
--- NOTE | 2018-08-12 20:30 | NUR ---
RN NOTE PATIENT REFUSED TO HAVE HER FOOT, HEEL AND ANKLE'S WOUND PICTURE TAKEN. STATED THAT THEY HAD THE PICTURES TAKEN BEFORE AND SHE DOES NOT WANT TO HAVE THE DRESSING REMOVED SHE WILL HAVE DEBRIDEMENT TOMORROW
[2018-08-13] VITALS (9 sets, daily range): BP systolic 122–145; BP diastolic 57–75
[2018-08-13] MEDS: IV NS 0.9% 1,000 ML IV PRN ×2 (04:10→21:24)
[2018-08-13] MEDS: HYDROMORPHONE INJ 2 MG/ML DISP.SYRIN IV PRN (05:56)
--- NOTE | 2018-08-13 05:57 | NUR ---
RN NOTES PATIENT C/O PAIN ON FOOT/ ANKLES, 02/13. DILAUDID 0.5MG GIVEN ORDERED.
[2018-08-13 06:32] LABS: BASOPHILS % (AUTO) 0.7 % (0.0-2.0); EOSINOPHILS % (AUTO) 7.8 % (0.0-6.0); HEMATOCRIT 30 % (33-45); HEMOGLOBIN 9.8 g/dL (11.5-14.8); LYMPHOCYTES # (AUTO) 0.6 /CMM (0.8-4.8); LYMPHOCYTES % (AUTO) 9.4 % (20.0-44.0); MEAN CORPUSCULAR HGB CONC 33 g/dl (31.0-36.0); MEAN CORPUSCULAR VOLUME 84 fL (82-100); MONOCYTES # (AUTO) 0.9 /CMM (0.1-1.30); MONOCYTES % (AUTO) 14.1 % (2.0-12.0); NEUTROPHILS # (AUTO) 4.3 /CMM (1.8-8.9); PLATELET COUNT (AUTO) 205 /CMM (150-450); RED BLOOD CELL COUNT(AUTO) 3.57 MIL/uL (4.0-5.2); WHITE BLOOD COUNT (AUTO) 6.3 K/uL (4.3-11.0)
--- NOTE | 2018-08-13 06:53 | NUR ---
MS RN CLOSING NOTE PATIENT IN BED. SLEEPING, EASILY AROUSED WITH VERBAL STIMULI. ORIENTED X3. ON ROOM AIR, TOLERATING WELL. IN NO APPARENT DISTRESS OR DISCOMFORT AT THIS TIME. RESPIRATIONS EVEN AND UNLABORED. COLOSTOMY BAG IN PLACE, CHANGED, CLEAN, PATENT AND INTACT. RIGHT UPPER ARM PICC LINE IN PLACE, WITH FLUIDS RUNNING AT 75ML/HR, PATENT AND INTACT. PATIENT KEPT CLEAN AND COMFORTABLE. ALL NEEDS ATTENDED TO. SAFETY MEASURES IN PLACE, BED IN LOW LOCKED POSITION, SIDE RAILS UP X2, CALL LIGHT WITHIN EASY REACH. WILL ENDORSE KWABENA TO AM NURSE.
--- NOTE | 2018-08-13 07:11 | NUR ---
MS RN OPENING NOTES RECEIVED PATIENT ASLEEP IN BED, EASILY AWAKENS. HOB ELEVATED. NO SIGNS OF PAIN OR DISCOMFORTS NOTED AT THIS TIME. ON ROOM AIR, BREATHING EVEN AND UNLABORED. RIGHT UPPER ARM PICC LINE IN PLACE AND PATENT, IVF OF NS @ 75ML/HR INFUSING WELL. COLOSTOMY BAG IN PLACE AND CLEAN, NO STOOL PRESENT AT THIS TIME. SAFETY MEASURES IN PLACE. BED IN LOW LOCKED POSITION, SIDE RAILS UP X2, CALL LIGHT WITHIN EASY REACH. WILL CONTINUE TO MONITOR PT ACCORDINGLY.
[2018-08-13 07:32] LABS: ALANINE AMINOTRANSFERASE 16 U/L (12-78); ALBUMIN 2.8 g/dL (3.4-5.0); ALKALINE PHOSPHATASE 60 U/L (46-116); ASPARTATE AMINOTRANSFERASE 27 U/L (15-37); BILIRUBIN,TOTAL 0.3 mg/dL (0.2-1.0); CALCIUM, SERUM 8.7 mg/dL (8.5-10.1); CARBON DIOXIDE 22 mmol/L (21-32); CHLORIDE 107 mmol/L (98-107); CREATININE 1.3 mg/dL (0.6-1.3); GLUCOSE 69 mg/dL (74-106); MAGNESIUM 1.6 mg/dL (1.8-2.4); POTASSIUM 4.2 mmol/L (3.5-5.1); SODIUM SERUM 140 mmol/L (136-145); TOTAL PROTEIN, SERUM 6.8 g/dL (6.4-8.2); UREA NITROGEN, BLOOD 42 mg/dL (7-18)
[2018-08-13 07:57] LABS: CHOLESTEROL 107 mg/dL (<200); CREATINE KINASE, TOTAL 34 U/L (26-192); HDL CHOLESTEROL 44 mg/dL (40-60); LDL 55 mg/dL (0-99); TRIGLYCERIDES 42 mg/dL (30-150)
[2018-08-13] MEDS: NYSTATIN TOP POWDER 15 GM BOTTLE TP SCH ×2 (10:30→22:40)
[2018-08-13] MEDS: Magnesium 1GM/D5W 100ML PREMIX 100 ML IV SCH ×2 (11:02→15:13)
--- NOTE | 2018-08-13 11:58 | NUR ---
RN NOTES PATIENT TRANSPORTED TO SURGERY VIA HER BED BY 2 O.R. STAFF FOR B/L LOWER EXT WOUND DEBRIDEMENT BY DR FERNANDEZ.
[2018-08-13] MEDS ORDERED: BUPIVACAINE MPF 0.5% W/EPI INJ 30 ML VIAL ONE (12:15)
[2018-08-13] MEDS ORDERED: BUPIVACAINE 0.5 % PF 150 MG/30 ML VIAL ONE (12:15)
[2018-08-13] MEDS ORDERED: CLINDAMYCIN 900 MG/6 ML VIAL ONE (12:26)
--- NOTE | 2018-08-13 15:14 | NUR ---
RN NOTES PATIENT RETURNED FROM SURGERY S/P RIGHT LOWER EXTREMITY WOUND DEBRIDEMENT BY DR FERNANDEZ SLIGHTLY DROWSY WITH WOUND BACK IN PLACE TO RIGHT FOOT AT 125MMHG LOW PRESSURE WITH NO DRAINAGE NOTED TO COLLECTING CANISTER, DRESSING TO BOOT FEET C/D/I. V/S TAKEN: BP 130/60, P 75, R 16, SP02 95% AND T 98.1F. IV INFUSION RESUMED. CAREGIVER AT BEDSIDE. WILL CONTINUE TO MONITOR.
[2018-08-13] MEDS: IBUPROFEN 400 MG TABLET PO PRN (16:52)
--- NOTE | 2018-08-13 16:53 | NUR ---
RN NOTES/ PAIN MANAGEMENT PT COMPLAINED OF PAIN ON BOTH FOOT BUT MORE ON THE RIGHT FOOT WITH SCALE OF 7/10, PRN MOTRIN 400MG PO GIVEN. WILL CONTINUE TO MONITOR.
[2018-08-13] MEDS: ENSURE ENLIVE 237 ML LIQUID (VANILLA) PO SCH (17:50)
--- NOTE | 2018-08-13 18:33 | NUR ---
MS RN CLOSING NOTES PATIENT AWAKE IN BED AND RESTING AT MODERATE HIGH BACKREST POSITION. PRIVATE CAREGIVER AT BEDSIDE.A/O X3, SAME ABLE TO MAKE NEEDS KNOWN. WOUND VAC TO RIGHT FOOT IN PLACE AND RUNNING AT 125MMHG, NO DRAINAGE NOTED TO COLLECTING CANISTER. DRESSING TO LEFT FOOT C/D/I. ON ROOM AIR, BREATHING EVEN AND UNLABORED. RIGHT UPPER ARM PICC LINE IN PLACE AND PATENT, IVF OF NS @ 75ML/HR INFUSING WELL. COLOSTOMY BAG IN PLACE AND CLEAN WITH + SOFT STOOL NOTED. ALL SAFETY MEASURES IN PLACE. BED IN LOW LOCKED POSITION, SIDE RAILS UP X2, CALL LIGHT WITHIN EASY REACH. WILL ENDORSE TO VEGETABLE BUNCHER NURSE FOR KWABENA.
--- NOTE | 2018-08-13 20:00 | NUR ---
ms/rn opening notes RECEIVED PATIENT IN BED, AWAKE,ALERT, WATCHING TV FOR DISTRACTION, ABLE TO MAKE NEEDS KNOWN, BED LOCK, CALL LIGHTS WITHIN REACH, WOUND VAC SETTING AT 125MM RUNNING, ABLE TO DRINK FLUIDS, ON IV HYDRATION , RIGHT PICC LINE AC SITE ON, INSTRUCT TO KEEP RIGHT ARM EXTENDED NOT REMIND TO AVOID ANY PROBLEM WITH IV FLOWING PROPERLY . VERBALIZED UNDERSTANDING. REQUIRE REMINDERS AND REPOSITION FOR COMFORT,PAIN MEDICATION FOR LOWER LEGS, ULTRAM REQUESTED, WILL MONITOR.
[2018-08-13] MEDS: TRAMADOL HCL 50 MG TABLET PO PRN (20:15)
[2018-08-14] MEDS: IBUPROFEN 400 MG TABLET PO PRN ×3 (01:56→18:10)
[2018-08-14 06:38] LABS: CALCIUM, SERUM 8.3 mg/dL (8.5-10.1); CARBON DIOXIDE 23 mmol/L (21-32); CHLORIDE 108 mmol/L (98-107); CREATININE 1.2 mg/dL (0.6-1.3); GLUCOSE 76 mg/dL (74-106); POTASSIUM 4.1 mmol/L (3.5-5.1); SODIUM SERUM 140 mmol/L (136-145); UREA NITROGEN, BLOOD 37 mg/dL (7-18)
--- NOTE | 2018-08-14 07:34 | NUR ---
324-2 MS/RN NOTES PATIENT ALERT, ORIENTED ABLE TO VERBALIZE NEEDS AT ALL TIMES, ON PAIN MEDICATION FOR LOWER EXTREMITY WOUND, REQUIRE EXTENSIVE ASSSISTANCE IN TURNING,OFFERED AND PROVIDED FLUIDS, COLOSTOMY CHANGE, ON WOUND VAC RUNNING WITH ORDERED SETTING AT 125. WILL ENDORSE TO AM RN FOR KWABENA.
[2018-08-14 08:00] VITALS: BP 155/76
--- NOTE | 2018-08-14 08:00 | NUR ---
MS RN Opening Note Received patient awake, resting in bed. Patient alert and oriented x 4, able to make needs known. Respirations even and unlabored, saturating on room air. No acute distress noted and no complaints of pain at this time. PICC line to right upper arm, intact, patent and infusing NS at 75 mL/hr. Wound vac to the right foot in place, running at 125 mmHg, scant drainage noted. Dressing to the left foot clean, dry and intact. 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 Safety and Fall precautions in place: bed in lowest and locked position, side rails up x 2, bed alarm on, call light within reach. Reviewed safety measures and plan of care with patient and primary caregiver, verbalized understanding. Caregiver at bedside. Will continue to monitor and intervene as needed.
[2018-08-14] MEDS: ENSURE ENLIVE 237 ML LIQUID (VANILLA) PO SCH ×3 (08:49→17:19)
--- NOTE | 2018-08-14 10:02 | NUR ---
WOUND CARE CONSULT WOUND CARE RECEIVED CONSULT FOR LOW TRISTIN AND NON HEALING ANKLE WOUND. WOUND CARE WILL DEFER CONSULT AND ALL TREATMENT PLANS TO DPM DR FERNANDEZ AND PLASTIC SURGICAL TEAM THEY ARE CURRENTLY FOLLOWING THIS PATIENT. PATIENT WITH TRISTIN AT 13, ALL PRESSURE ULCER PREVENTION MEASURES ARE NOTED TO BE IN PLACE. WILL SEE PRN.
[2018-08-14] MEDS: NYSTATIN TOP POWDER 15 GM BOTTLE TP SCH ×2 (10:03→22:33)
[2018-08-14 10:20] LABS: *SPE ALBUMIN 3.1 g/dL (2.9-4.4); *SPE ALPHA-1-GLOBULIN 0.3 g/dL (0.0-0.4); *SPE ALPHA-2-GLOBULIN 0.7 g/dL (0.4-1.0); *SPE BETA GLOBULIN 0.8 g/dL (0.7-1.3); *SPE M-SPIKE Not Observed g/dL (Not Observed); *SPEGAMMA GLOBULIN 1.2 g/dL (0.4-1.8)
[2018-08-14 13:14] LABS: PTH, INTACT 34 pg/mL (15-65)
[2018-08-14] MEDS ORDERED: TRAMADOL HCL 50 MG TABLET PO PRN (14:00)
[2018-08-14] MEDS ORDERED: DAPTOMYCIN 350 MG IV SCH (14:00)
[2018-08-14] MEDS: TRAMADOL HCL 50 MG TABLET PO PRN ×2 (14:33→22:34)
[2018-08-14] MEDS ORDERED: LEVOFLOXACIN (500MG) 500 MG TABLET PO ONE (15:00)
[2018-08-14] MEDS ORDERED: FEE PK DOSING 1 MIN EA MC ONE (15:07)
[2018-08-14 16:00] VITALS: BP 131/80
[2018-08-14] MEDS ORDERED: VANCOMYCIN 1 GM in IV D5W 250 ML IV ONE (16:00)
[2018-08-14] MEDS: PROSTAT (PYXIS) 30 ML UDC PO SCH (17:26)
[2018-08-14] MEDS: IV NS 0.9% 1,000 ML IV PRN (18:08)
--- NOTE | 2018-08-14 18:30 | NUR ---
MS RN Closing Note Patient currently awake, resting in bed. Patient alert and oriented x 4, able to make needs known, hard of hearing. Respirations even and unlabored, saturating on room air. No acute distress noted and no complaints of pain at this time. PICC line to right upper arm, intact, patent and infusing NS at 75 mL/hr. Wound vac to the right foot in place, running at 125 mmHg, scant drainage noted. Dressing to the left foot clean, dry and intact. 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 Safety and Fall precautions in place: bed in lowest and locked position, side rails up x 2, bed alarm on, call light within reach. Reviewed safety measures and plan of care with patient and primary caregiver, verbalized understanding. Caregiver at bedside. Will endorse to bicycle racer RN for continuity of care.
--- NOTE | 2018-08-14 19:15 | NUR ---
MS RN Opening Note Received patient in bed, watching TV. Patient alert and oriented x 4, able to make needs known. Respirations even and unlabored, saturating on room air. No acute distress noted and no complaints of pain at this time. PICC line to right upper arm, intact. Wound vac to the right foot in place, running at 125 mmHg, scant drainage noted. Dressing to the left foot clean, dry and intact. Colostomy bag in left abdomen, clean, dry and intact with soft stool output noted. Safety and Fall precautions in place: bed in lowest and locked position, side rails up x 2, bed alarm on, call light within reach. Patient stable as endorsed by the AM RN. Will continue to monitor accordingly.
[2018-08-14 20:00] VITALS: BP 152/70
[2018-08-15] MEDS: IV NS 0.9% 1,000 ML IV PRN (05:19)
[2018-08-15] MEDS: IBUPROFEN 400 MG TABLET PO PRN ×3 (06:36→22:17)
[2018-08-15 06:53] LABS: BASOPHILS % (AUTO) 0.5 % (0.0-2.0); EOSINOPHILS % (AUTO) 7.3 % (0.0-6.0); HEMATOCRIT 28 % (33-45); HEMOGLOBIN 9.4 g/dL (11.5-14.8); LYMPHOCYTES # (AUTO) 0.3 /CMM (0.8-4.8); LYMPHOCYTES % (AUTO) 5.4 % (20.0-44.0); MEAN CORPUSCULAR HGB CONC 34 g/dl (31.0-36.0); MEAN CORPUSCULAR VOLUME 83 fL (82-100); MONOCYTES # (AUTO) 0.6 /CMM (0.1-1.30); MONOCYTES % (AUTO) 11.3 % (2.0-12.0); NEUTROPHILS # (AUTO) 4.2 /CMM (1.8-8.9); NEUTROPHILS % (AUTO) 75.5 % (43.0-81.0); PLATELET COUNT (AUTO) 196 /CMM (150-450); WHITE BLOOD COUNT (AUTO) 5.6 K/uL (4.3-11.0)
[2018-08-15 07:05] LABS: CALCIUM, SERUM 8.1 mg/dL (8.5-10.1); CARBON DIOXIDE 24 mmol/L (21-32); CHLORIDE 106 mmol/L (98-107); GLUCOSE 80 mg/dL (74-106); MAGNESIUM 1.3 mg/dL (1.8-2.4); POTASSIUM 4.3 mmol/L (3.5-5.1); SODIUM SERUM 138 mmol/L (136-145); UREA NITROGEN, BLOOD 37 mg/dL (7-18)
--- NOTE | 2018-08-15 07:30 | NUR ---
RN MS NOTES PT IN BED, ASLEEP, EASY TO AROUSE, ALERT AND ORIENTED, NO COMPLAINT OF PAIN AT THIS TIME, RESPIRATIONS NORMAL, CALL LIGHT WITHIN REACH, WOUND VAC TO RIGHT FOOT IN PLACE, ASSISTED IN TURNING AND REPOSITIONING, IV FLUIDS INFUSING WELL, NEEDS ATTENDED.
--- NOTE | 2018-08-15 07:39 | NUR ---
MS RN Closing Notes Patient currently awake, resting in bed. Patient alert and oriented x 3, able to make needs known, hard of hearing. Respirations even and unlabored, saturating on room air. No acute distress noted and no complaints of pain at this time. PICC line to right upper arm, intact, patent and infusing NS at 75 mL/hr. Wound vac to the right foot in place, running at 125 mmHg, scant drainage noted. Dressing to the left foot clean, dry and intact. 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 Safety and Fall precautions in place: bed in lowest and locked position, side rails up x 2, bed alarm on, call light within reach. Endorsed KWABENA to AM RN
[2018-08-15 08:00] VITALS: BP 160/76
[2018-08-15] MEDS: PROSTAT (PYXIS) 30 ML UDC PO SCH ×3 (09:00→16:30)
[2018-08-15] MEDS: LOSARTAN POTASSIUM 50 MG TABLET PO SCH (09:11)
[2018-08-15] MEDS: ENSURE ENLIVE 237 ML LIQUID (VANILLA) PO SCH ×3 (09:11→17:22)
[2018-08-15] MEDS: LEVOTHYROXINE SODIUM 25 MCG TABLET PO SCH (09:11)
[2018-08-15] MEDS: ASCORBIC ACID 500 MG TABLET PO SCH (09:11)
[2018-08-15] MEDS: MULTIVITAMINS,THERAGRAN 1 UDTAB TABLET PO SCH (09:11)
[2018-08-15] MEDS: LACTOBACILLUS RHAMNOSUS GG 1 EACH CAP.SPRINK PO SCH ×2 (09:13→16:30)
[2018-08-15] MEDS: Magnesium 1GM/D5W 100ML PREMIX 100 ML IV SCH ×2 (10:38→11:49)
[2018-08-15] MEDS: NYSTATIN TOP POWDER 15 GM BOTTLE TP SCH ×2 (10:44→23:04)
[2018-08-15] MEDS: TRAMADOL HCL 50 MG TABLET PO PRN ×2 (10:59→18:34)
--- NOTE | 2018-08-15 12:38 | NUR ---
RN MS NOTES PT IN BED, AWAKE, ALERT AND ORIENTED, BEING ASSISTED WITH LUNCH BY CAREGIVER, PAIN MEDICATION GIVEN ORDERED, NOT IN DISTRESS, SEEN BY DR. FERNANDEZ, PLAN FOR DRESSING CHANGE TOMORROW, CALL LIGHT WITHIN REACH, NEEDS ATTENDED.
[2018-08-15] MEDS ORDERED: LEVOFLOXACIN (250MG) 250 MG TABLET PO SCH (15:00)
[2018-08-15 16:00] VITALS: BP 139/67
[2018-08-15] MEDS ORDERED: VANCOMYCIN 500 MG in IV D5W 100 ML IV SCH (16:00)
--- NOTE | 2018-08-15 18:57 | NUR ---
RN MS NOTES PT IN BED, AWAKE, ALERT AND ORIENTED, PAIN MEDICATION GIVEN FOR PAIN MANAGEMENT, PM MEDS GIVEN, IV FLUIDS INFUSING WELL, ASSISTED WITH MEALS, CALL LIGHT WITHIN REACH, ALL NEEDS ATTENDED.
--- NOTE | 2018-08-15 19:30 | NUR ---
MS RN NOTES RECEIVED SITTING ON BED A/O X3,S/P WOUND DEBRIDEMENT BLE,DRESSING INTACT AND DRY.WOUND VAC IN PLACE ON RIGHT FOOT,HEEL PROTECTOR IN USED.WITH RIGHT UPPER ARM PICC INFUSING NS AT 75ML/HR RATE.HARD OF HEARING ON BOTH EARS.CALL LIGHT IN REACH,NEEDS ANTICIPATED.
[2018-08-15 20:00] VITALS: BP 141/61
--- NOTE | 2018-08-15 22:17 | NUR ---
MS RN NOTES C/O RIGHT FOOT PAIN,MEDICATED WITH MOTRIN 400MG PO PER PATIENT REQUEST WITH ORDER.
[2018-08-16] MEDS: IV NS 0.9% 1,000 ML IV PRN ×2 (05:57→19:35)
[2018-08-16 06:28] LABS: BASOPHILS % (AUTO) 0.8 % (0.0-2.0); HEMATOCRIT 28 % (33-45); HEMOGLOBIN 9.3 g/dL (11.5-14.8); LYMPHOCYTES # (AUTO) 0.5 /CMM (0.8-4.8); LYMPHOCYTES % (AUTO) 9.6 % (20.0-44.0); MEAN CORPUSCULAR HGB CONC 34 g/dl (31.0-36.0); MEAN CORPUSCULAR VOLUME 83 fL (82-100); MONOCYTES # (AUTO) 0.8 /CMM (0.1-1.30); MONOCYTES % (AUTO) 14.9 % (2.0-12.0); NEUTROPHILS # (AUTO) 3.4 /CMM (1.8-8.9); NEUTROPHILS % (AUTO) 63.7 % (43.0-81.0); PLATELET COUNT (AUTO) 149 /CMM (150-450); RED BLOOD CELL COUNT(AUTO) 3.33 MIL/uL (4.0-5.2); WHITE BLOOD COUNT (AUTO) 5.4 K/uL (4.3-11.0)
--- NOTE | 2018-08-16 06:30 | NUR ---
MS RN NOTES IN BED SLEEPING,AROUSABLE TO VERBAL STIMULI.BREATHING NON LABORED,IVF IN PROGRESS VIA RIGHT UPPER ARM PICC LINE.BILATERAL FOOT DRESSING INTACT AND DRY,HEEL PROTECTOR IN USED.WOUND VAC IN PLACE RIGHT FOOT.PAIN MANAGEMENT EFFECTIVE.BED ON LOWEST POSITION AND LOCKED.CALL LIGHT IN REACH,NEEDS ATTENDED.
[2018-08-16 06:36] LABS: CALCIUM, SERUM 8.2 mg/dL (8.5-10.1); CARBON DIOXIDE 24 mmol/L (21-32); CHLORIDE 106 mmol/L (98-107); CREATININE 1.2 mg/dL (0.6-1.3); GLUCOSE 78 mg/dL (74-106); MAGNESIUM 2.1 mg/dL (1.8-2.4); POTASSIUM 4.8 mmol/L (3.5-5.1); SODIUM SERUM 139 mmol/L (136-145); UREA NITROGEN, BLOOD 44 mg/dL (7-18)
--- NOTE | 2018-08-16 07:30 | NUR ---
RN MS NOTES PT IN BED, ASLEEP, RESPIRATIONS NORMAL, NO FACIAL GRIMACING OR MOANING, EASY TO AROUSE, IV FLUIDS INFUSING WELL, CALL LIGHT WITHIN REACH, KEPT WARM AND COMFORTABELE IN BED.
[2018-08-16] MEDS: TRAMADOL HCL 50 MG TABLET PO PRN ×2 (07:53→15:55)
[2018-08-16 08:00] VITALS: BP 170/74
--- NOTE | 2018-08-16 08:15 | NUR ---
RN MS NOTES PT IN BED, AWAKE, ALERT AND ORIENTED, NOT IN DISTRESS, PAIN MED GIVEN, SEEN BY DR. FERNANDEZ FOR WOUND VAC REMOVAL AND DRESSING CHANGE FOR LEFT AND RIGHT FOOT WOUNDS, PT TOLERATED PROCEDURE WELL, PER MD, PT OK TO GO BACK TO SNF AND RESUME WOUND VAC THERE, PT INFORMED, VERBALIZED UNDERSTANDING.
[2018-08-16] MEDS: ENSURE ENLIVE 237 ML LIQUID (VANILLA) PO SCH ×3 (08:49→18:34)
[2018-08-16] MEDS: MULTIVITAMINS,THERAGRAN 1 UDTAB TABLET PO SCH (08:50)
[2018-08-16] MEDS: LEVOTHYROXINE SODIUM 25 MCG TABLET PO SCH (08:50)
[2018-08-16] MEDS: LACTOBACILLUS RHAMNOSUS GG 1 EACH CAP.SPRINK PO SCH ×2 (08:50→18:34)
[2018-08-16] MEDS: PROSTAT (PYXIS) 30 ML UDC PO SCH ×3 (08:50→17:00)
[2018-08-16] MEDS: ASCORBIC ACID 500 MG TABLET PO SCH (08:50)
[2018-08-16] MEDS: LOSARTAN POTASSIUM 50 MG TABLET PO SCH (08:51)
[2018-08-16] MEDS: NYSTATIN TOP POWDER 15 GM BOTTLE TP SCH ×2 (10:36→22:53)
[2018-08-16] MEDS: IBUPROFEN 400 MG TABLET PO PRN ×2 (12:17→22:04)
--- NOTE | 2018-08-16 13:00 | NUR ---
RN MS NOTES PT IN BED, RESTING, PAIN MEDS GIVEN FOR PAIN MANAGEMENT ORDERED, ASSISTED IN TURNING AND REPOSITIONING, COLOSTOMY CARE RENDERED, IV FLUIDS INFUSING WELL, CALL LIGHT WITHIN REACH.
[2018-08-16 16:00] VITALS: BP 152/70
--- NOTE | 2018-08-16 19:00 | NUR ---
RN MS NOTES PT IN BED, AWAKE, READING NEWSPAPER, NO COMPLAINT OF PAIN AT THIS TIME, RESPIRATIONS NORMAL, ASSISTED WITH MEALS, PM CARE PROVIDED, ASSISTED IN TURNING AND REPOSITIONING, ALL NEEDS ATTENDED.
--- NOTE | 2018-08-16 19:30 | NUR ---
MS RN NOTES RECEIVED ON BED,ON SITTING POSITION,PAIN ON BILATERAL FOOT TOLERATED AT THE MOMENT,DRESSING INTACT AND DRY ON BILATERAL FOOT,HEEL PROTECTOR IN USED.WITH IVF NS AT 75ML/HR RATE IN PROGRESS VIA IV PUMP ON RIGHT ARM PICC LINE.CALL LIGHT IN REACH,NEEDS ANTICIPATED.
[2018-08-16 20:00] VITALS: BP 135/60
--- NOTE | 2018-08-16 22:04 | NUR ---
MS RN NOTES PAIN MANAGEMENT C/O PAIN ON BILATERAL FOOT,MOTRIN 400MG PO GIVEN PER PATIENT REQUEST.
--- NOTE | 2018-08-17 03:39 | NUR ---
MS RN NOTES WITH MODERATE SOFT BOWEL MOVEMENT VIA COLOSTOMY BAG,REMOVED AND CHANGED COLOSTOMY BAG,APPLIED REMEDY AROUND STOMA AREA.
[2018-08-17] MEDS: TRAMADOL HCL 50 MG TABLET PO PRN ×3 (03:45→21:51)
--- NOTE | 2018-08-17 03:45 | NUR ---
MS RN NOTES C/O RIGHT KNEE PAIN 5/10 ON PAIN SCALE,MEDICATED WITH ULTRAM 50MG PO PER PATIENT REQUEST WITH ORDER.
--- NOTE | 2018-08-17 06:58 | NUR ---
MS RN NOTES ON BED A/O X4,NO SOB,PAIN MANAGEMENT EFFECTIVE,IN NO ACUTE DISTRESS.WILL ENDORSE TO DAY NURSE FOR KWABENA.
[2018-08-17 07:43] LABS: BASOPHILS % (AUTO) 0.5 % (0.0-2.0); EOSINOPHILS % (AUTO) 8.5 % (0.0-6.0); HEMATOCRIT 28 % (33-45); LYMPHOCYTES # (AUTO) 0.5 /CMM (0.8-4.8); LYMPHOCYTES % (AUTO) 9.2 % (20.0-44.0); MEAN CORPUSCULAR HGB CONC 33 g/dl (31.0-36.0); MEAN CORPUSCULAR VOLUME 83 fL (82-100); MONOCYTES # (AUTO) 0.8 /CMM (0.1-1.30); MONOCYTES % (AUTO) 14.3 % (2.0-12.0); NEUTROPHILS # (AUTO) 3.9 /CMM (1.8-8.9); NEUTROPHILS % (AUTO) 67.5 % (43.0-81.0); PLATELET COUNT (AUTO) 202 /CMM (150-450); RED BLOOD CELL COUNT(AUTO) 3.32 MIL/uL (4.0-5.2); WHITE BLOOD COUNT (AUTO) 5.8 K/uL (4.3-11.0)
[2018-08-17 07:59] LABS: CALCIUM, SERUM 7.6 mg/dL (8.5-10.1); CARBON DIOXIDE 25 mmol/L (21-32); CHLORIDE 105 mmol/L (98-107); CREATININE 1.1 mg/dL (0.6-1.3); GLUCOSE 75 mg/dL (74-106); POTASSIUM 4.2 mmol/L (3.5-5.1); SODIUM SERUM 139 mmol/L (136-145); UREA NITROGEN, BLOOD 44 mg/dL (7-18)
[2018-08-17 08:00] VITALS: BP 136/93
--- NOTE | 2018-08-17 08:00 | NUR ---
m/s peoplesoft hcm developer: initial assessment received pt in bed awake, a/ox3; gulkana. no c/o pain or any discomfort. instructed to call for assistance. will continue to monitor.
[2018-08-17] MEDS: ENSURE ENLIVE 237 ML LIQUID (VANILLA) PO SCH ×3 (08:59→16:10)
[2018-08-17] MEDS: ASCORBIC ACID 500 MG TABLET PO SCH (09:00)
[2018-08-17] MEDS: MULTIVITAMINS,THERAGRAN 1 UDTAB TABLET PO SCH (09:00)
[2018-08-17] MEDS: PROSTAT (PYXIS) 30 ML UDC PO SCH ×3 (09:00→16:10)
[2018-08-17] MEDS: LACTOBACILLUS RHAMNOSUS GG 1 EACH CAP.SPRINK PO SCH ×2 (09:00→17:10)
[2018-08-17] MEDS: LOSARTAN POTASSIUM 50 MG TABLET PO SCH (09:01)
[2018-08-17] MEDS: LEVOTHYROXINE SODIUM 25 MCG TABLET PO SCH (09:01)
[2018-08-17] MEDS: IBUPROFEN 400 MG TABLET PO PRN ×2 (09:01→17:10)
--- NOTE | 2018-08-17 10:00 | NUR ---
m/s mediation commissioner: notes am care rendered and incontinent care of bladder rendered by staff. private caregiver at bedside. will continue to monitor.
[2018-08-17] MEDS: NYSTATIN TOP POWDER 15 GM BOTTLE TP SCH ×2 (10:30→21:52)
--- NOTE | 2018-08-17 12:00 | NUR ---
m/s security systems engineer: notes noon care rendered and incontinent care of bladder rendered by staff. private caregiver at bedside. will continue to monitor.
[2018-08-17] MEDS: IV NS 0.9% 1,000 ML IV PRN (13:03)
--- NOTE | 2018-08-17 14:00 | NUR ---
m/s meteorological equipment repairer: notes afternoon care rendered and incontinent care of bladder rendered by staff. private caregiver at bedside. will continue to monitor.
--- NOTE | 2018-08-17 15:00 | NUR ---
m/s barrel planer: notes colostomy care rendered by rn student with supervision from staff. private caregiver at bedside. will continue to monitor.
[2018-08-17 16:00] VITALS: BP 148/68
--- NOTE | 2018-08-17 16:25 | NUR ---
m/s personal insurance advisor: notes pt refused ankle/foot wound tx when offered. mirta wrap dressing on to earl foot with no drainage/discharge noted. instructed to call for assistance. will continue to monitor.
--- NOTE | 2018-08-17 18:30 | NUR ---
m/s valve mechanic: notes pt still eating her dinner. hob elevated. caregiver at bedside. needs attended. call light within reach. will monitor.
--- NOTE | 2018-08-17 19:00 | NUR ---
RN OPENING NOTES PT AWAKE AND RESTING IN BED. CAREGIVER AT BEDSIDE. NO COMPLAINTS OF PAIN, SOB OR DISTRESS AT THIS TIME. PT HAS A ANYA PICC LINE RUNNING NS @ 75ML/HR. SAFETY PRECAUTIONS IN PLACE, BED IN LOWEST LOCKED POSITION, X2 SIDE RAILS UP AND CALL LIGHT WITHIN REACH. WILL CONTINUE TO MONITOR.
[2018-08-17 20:00] VITALS: BP 101/69
[2018-08-18] MEDS: IV NS 0.9% 1,000 ML IV PRN (01:44)
[2018-08-18] MEDS: IBUPROFEN 400 MG TABLET PO PRN ×2 (01:46→13:19)
[2018-08-18] MEDS ORDERED: AMOX/CLAVULANATE 875 MG TABLET ONE (03:40)
--- NOTE | 2018-08-18 06:10 | NUR ---
RN CLOSING NOTES PT RESTING IN BED. NO COMPLAINTS OF PAIN, SOB OR DISTRESS AT THIS TIME. PAIN MANAGEMENT ADDRESSED WITH MOTRIN AND ULTRAM. PT HAS A ANYA PICC LINE RUNNING NS @ 75ML/HR. SAFETY PRECAUTIONS IN PLACE, BED IN LOWEST LOCKED POSITION, X2 SIDE RAILS UP AND CALL LIGHT WITHIN REACH. WILL ENDORSE TO DAY SHIFT NURSE FOR CONTINUITY OF CARE.
[2018-08-18 07:24] LABS: BASOPHILS % (AUTO) 0.8 % (0.0-2.0); EOSINOPHILS % (AUTO) 9.3 % (0.0-6.0); HEMATOCRIT 27 % (33-45); LYMPHOCYTES # (AUTO) 0.6 /CMM (0.8-4.8); LYMPHOCYTES % (AUTO) 10.8 % (20.0-44.0); MEAN CORPUSCULAR HGB CONC 33 g/dl (31.0-36.0); MEAN CORPUSCULAR VOLUME 83 fL (82-100); MONOCYTES # (AUTO) 0.9 /CMM (0.1-1.30); MONOCYTES % (AUTO) 16.3 % (2.0-12.0); NEUTROPHILS # (AUTO) 3.4 /CMM (1.8-8.9); NEUTROPHILS % (AUTO) 62.8 % (43.0-81.0); PLATELET COUNT (AUTO) 202 /CMM (150-450); RED BLOOD CELL COUNT(AUTO) 3.26 MIL/uL (4.0-5.2); WHITE BLOOD COUNT (AUTO) 5.4 K/uL (4.3-11.0)
--- NOTE | 2018-08-18 07:29 | NUR ---
MS RN NOTES PATIENT IN BED ALERT ORIENTED X 3. NO ACUTE DISTRESS NOTED, BREATHING UNLABORED. NO SOB NOTED. IV ACCESS PATENT AND INTACT. NO REDNESS OR SWELLING NOTED. SAFETY MEASURES IN PLACE, CALL LIGHT WITHIN REACH. WILL CONTINUE TO MONITOR ACCORDINGLY.
[2018-08-18 07:30] LABS: CALCIUM, SERUM 8.2 mg/dL (8.5-10.1); CARBON DIOXIDE 26 mmol/L (21-32); CHLORIDE 105 mmol/L (98-107); CREATININE 0.9 mg/dL (0.6-1.3); GLUCOSE 76 mg/dL (74-106); MAGNESIUM 1.9 mg/dL (1.8-2.4); PHOSPHORUS 3.7 mg/dL (2.5-4.9); POTASSIUM 4.6 mmol/L (3.5-5.1); SODIUM SERUM 138 mmol/L (136-145); UREA NITROGEN, BLOOD 41 mg/dL (7-18)
[2018-08-18] MEDS ORDERED: LACT1CAP72 PO (07:51)
[2018-08-18] MEDS ORDERED: NYST15PO4 TP (07:51)
[2018-08-18 08:00] VITALS: BP 149/78
[2018-08-18] MEDS: LEVOTHYROXINE SODIUM 25 MCG TABLET PO SCH (08:07)
[2018-08-18] MEDS: LACTOBACILLUS RHAMNOSUS GG 1 EACH CAP.SPRINK PO SCH ×2 (08:07→17:19)
[2018-08-18] MEDS: MULTIVITAMINS,THERAGRAN 1 UDTAB TABLET PO SCH (08:07)
[2018-08-18] MEDS: ASCORBIC ACID 500 MG TABLET PO SCH (08:07)
[2018-08-18] MEDS: LOSARTAN POTASSIUM 50 MG TABLET PO SCH (08:08)
[2018-08-18] MEDS: ENSURE ENLIVE 237 ML LIQUID (VANILLA) PO SCH ×3 (08:14→17:19)
[2018-08-18] MEDS: PROSTAT (PYXIS) 30 ML UDC PO SCH ×3 (08:16→17:19)
[2018-08-18] MEDS: TRAMADOL HCL 50 MG TABLET PO PRN (09:18)
[2018-08-18] MEDS: NYSTATIN TOP POWDER 15 GM BOTTLE TP SCH (09:57)
[2018-08-18 16:00] VITALS: BP 146/87
--- NOTE | 2018-08-18 19:15 | NUR ---
MS PATTERNMAKER HAND NOTES PATIENT DISCHARGE TO [facility]. ALERT ORIENTED X 3. NO ACUTE DISTRESS NOTED, BREATHING UNLABORED. NO SOB NOTED. DISCHARGE INSTRUCTION REPORT GIVEN TO ALDO CLARK OF [facility]. ALL BELONGINGS ACCOUNTED FOR. NEEDS ATTENDED AND ANTICIPATED. KEPT CLEAN DRY AND COMFORTABLE. DUE MEDICATIONS GIVEN, NO ASE NOTED. BILATERAL FOOT DRESSING INTACT, CLEAN AND DRY. OSTOMY BAG INTACT, PATIENT REFUSED OSTOMY BAG CHANGED AND PHOTO TAKEN BEFORE DISCHARGE DESPITE OF EXPLANATION OF RISK AND BENEFITS. PICKED UP VIA AMBULANCE IN A GURNEY ACCOMPANIED BY 2 EMT PERSONNEL IN STABLE CONDITION.
== END 2018-08-18 19:00 | DRG 264 ==
LOC: ER 16:47 → MED 18:53
PROVIDERS: ADMIT Nurse Practitioner Acute Care; ATTEND Registered Nurse
PROC: 0LBS0ZZ Excision of Right Ankle Tendon, Open Approach (ICD-10-PCS; principal; 2018-08-13)
PROC: 0JBQ0ZZ Excision of Right Foot Subcutaneous Tissue and Fascia, Open Approach (ICD-10-PCS; 2018-08-13)
PROC: 0JBR0ZZ Excision of Left Foot Subcutaneous Tissue and Fascia, Open Approach (ICD-10-PCS; 2018-08-13)
DX: I70.233 Atherosclerosis of native arteries of right leg with ulceration of ankle (principal); N17.0 Acute kidney failure with tubular necrosis; R53.2 Functional quadriplegia; D68.59 Other primary thrombophilia; L97.318 Non-pressure chronic ulcer of right ankle with other specified severity; L97.828 Non-pressure chronic ulcer of other part of left lower leg with other specified severity; I70.238 Atherosclerosis of native arteries of right leg with ulceration of other part of lower leg; I70.248 Atherosclerosis of native arteries of left leg with ulceration of other part of lower leg; F17.210 Nicotine dependence, cigarettes, uncomplicated; D63.8 Anemia in other chronic diseases classified elsewhere; D63.1 Anemia in chronic kidney disease; E03.9 Hypothyroidism, unspecified; F03.90 Unspecified dementia, unspecified severity, without behavioral disturbance, psychotic disturbance, mood disturbance, and anxiety; I12.9 Hypertensive chronic kidney disease with stage 1 through stage 4 chronic kidney disease, or unspecified chronic kidney disease; L30.4 Erythema intertrigo; M19.90 Unspecified osteoarthritis, unspecified site; N18.9 Chronic kidney disease, unspecified; R32 Unspecified urinary incontinence; Z88.0 Allergy status to penicillin
CPT/HCPCS: 36415; 71045-TC; 80048-TC; 80053-TC; 80061-TC; 80076-TC; 80202-TC; 82550-TC; 82570-TC; 83605-TC; 83735-TC; 83970; 84100-TC; 84155; 84155-TC; 84165; 84300-TC; 85025-TC; 85730-TC; 86850-TC; 87040-TC; 87081-TC; A6402; A6403; G0378; J1170; J3370; J3475; J3490; J7030; J7060

== ENCOUNTER 2018-09-21 19:41 | Inpatient (IN) | payer MEDICARE, BC ==
[~2018-09-21] VITALS: Ht 154.9 cm; Wt 46.7 kg
[~2018-09-21 19:41] MED LIST changes: +ASPI-1169 PO; +LACT1CAP72 PO; -LEVO500T2 PO; +LEVO500T90 PO; +NYST15PO4 TP; +TRAM50TA2 PO
--- NOTE | 2018-09-21 19:55 | NUR ---
PT SAM FROM SNF C/O FAILURE TO THRIVE. PT STATES SHE HAS MULTIPLE EPISODES OF VOMITTING AND DOES NOT HAVE APPETITE TO EAT. NOTED ABDOMINAL TENDERNESS AND COLOSTOMY BAG. PT AAOX4. RESPIRATIONS EVEN AND UNLABORED. NO ACUTE DISTRESS NOTED AT THIS TIME. PT PLACED ON CONTINUOUS TAMPING MACHINE OPERATOR, WILL CONTINUE TO MONITOR.
--- NOTE | 2018-09-21 20:00 | NUR ---
MD AT BEDSIDE FOR EVALUATION
--- NOTE | 2018-09-21 20:15 | NUR ---
NOTED PICC LINE RIGHT UPPER ARM. LABS DRAWN FROM SITE. LABOR UTILIZATION SUPERINTENDENT AT BEDSIDE FOR COLLECTION
[2018-09-21 20:20] LABS: BASOPHILS # (AUTO) 0.2 /CMM (0.0-0.2); EOSINOPHILS % (AUTO) 0.8 % (0.0-6.0); HEMATOCRIT 26 % (33-45); HEMOGLOBIN 8.4 g/dL (11.5-14.8); LYMPHOCYTES # (AUTO) 0.6 /CMM (0.8-4.8); LYMPHOCYTES % (AUTO) 2.8 % (20.0-44.0); MEAN CORPUSCULAR HGB CONC 32 g/dl (31.0-36.0); MEAN CORPUSCULAR VOLUME 78 fL (82-100); MONOCYTES # (AUTO) 1.5 /CMM (0.1-1.30); MONOCYTES % (AUTO) 7.8 % (2.0-12.0); NEUTROPHILS # (AUTO) 17.3 /CMM (1.8-8.9); NEUTROPHILS % (AUTO) 87.6 % (43.0-81.0); PLATELET COUNT (AUTO) 403 /CMM (150-450); RED BLOOD CELL COUNT(AUTO) 3.34 MIL/uL (4.0-5.2); WHITE BLOOD COUNT (AUTO) 19.8 K/uL (4.3-11.0)
--- NOTE | 2018-09-21 20:35 | NUR ---
URINE COLLECTED AND SENT TO LAB
[2018-09-21 20:39] LABS: CALCIUM, SERUM 8.2 mg/dL (8.5-10.1); CARBON DIOXIDE 17 mmol/L (21-32); CHLORIDE 99 mmol/L (98-107); CREATININE 3.5 mg/dL (0.6-1.3); GLUCOSE 107 mg/dL (74-106); POTASSIUM 4.2 mmol/L (3.5-5.1); SODIUM SERUM 130 mmol/L (136-145); UREA NITROGEN, BLOOD 60 mg/dL (7-18)
[2018-09-21 20:43] LABS: ALANINE AMINOTRANSFERASE 25 U/L (12-78); ALBUMIN 2.1 g/dL (3.4-5.0); ALKALINE PHOSPHATASE 110 U/L (46-116); ASPARTATE AMINOTRANSFERASE 25 U/L (15-37); BILIRUBIN,DIRECT 0.1 mg/dL (0.0-0.2); BILIRUBIN,TOTAL 0.2 mg/dL (0.2-1.0); LIPASE 44 U/L (73-393); TOTAL PROTEIN, SERUM 6.6 g/dL (6.4-8.2)
[2018-09-21 20:51] LABS: APPEARANCE,URINE Slightly Cloudy (CLEAR); BILIRUBIN,URINE SMALL (NEGATIVE); BLOOD, URINE Moderate Ery/uL (NEGATIVE); COLOR,URINE Dark (YELLOW); KETONES,URINE Trace (NEGATIVE); LEUKOCYTE ESTERASE ,URINE Large (NEGATIVE); NITRITE, URINE Negative (NEGATIVE); PH,URINE 5.5 (5.0-8.0); PROTEIN,URINE 100 mg/dl (NEGATIVE); UGLUCOSE Negative (NEGATIVE); UROBILINOGEN,URINE 0.2 EU/dL (0.2)
[2018-09-21] MEDS ORDERED: IV NS 0.9% 500 ML BAG IV ONE (21:00)
[2018-09-21 21:08] LABS: BACTERIA,URINE Many /HPF (None Seen); SQUAMOUS EPITHELIAL CELL,UR Moderate /HPF (None Seen)
[2018-09-21 21:09] LABS: YEAST,URINE Many /HPF (None Seen)
[2018-09-21 21:10] LABS: WBC,URINE 21-50 /HPF (0-3)
--- NOTE | 2018-09-21 21:32 | NUR ---
BROUGHT BY RADIOLOGY FOR CT
--- NOTE | 2018-09-21 21:48 | NUR ---
PT RETURNED FROM CT
[2018-09-21] MEDS ORDERED: IV NS 0.9% 1,000 ML BAG IV ONE (22:00)
--- NOTE | 2018-09-21 22:00 | NUR ---
ADMIT TELE 116-1 DX: RENAL FAILURE, SEPSIS WILFRIDO PENG
[2018-09-21 22:16] VITALS: BP 82/38
[2018-09-21] MEDS ORDERED: AZTREONAM 1 G VIAL ONE (22:23)
[2018-09-21] MEDS ORDERED: ACETAMINOPHEN ES 500 MG TABLET ONE (22:27)
[2018-09-21] MEDS ORDERED: PANTOPRAZOLE 40 MG VIAL ONE (22:27)
[2018-09-21] MEDS ORDERED: AZTREONAM 1 G in IV NS 0.9% 100 ML IV ONE (22:30)
[2018-09-21] MEDS ORDERED: PANTOPRAZOLE 40 MG VIAL IV ONE (22:30)
[2018-09-21] MEDS ORDERED: LEVOFLOXACIN 750 MG /D5W 150ML 150 ML IV ONE (22:30)
--- NOTE | 2018-09-21 22:30 | NUR ---
SHOT DROPPER NOTES PT RECEIVED FROM ED. PT A&OX3, CLEAR SPEECH. PT PLACED ON TELE MONITOR, READING SR HR 86. PT HAS R UA PICC WITH FLUIDS INFUSING ORDERED. PT HAS A COLOSTOMY. MULTIPLE SKIN WOUNDS, PICS TAKEN. PT ORIENTED TO ROOM. ALL NEEDS ANTICIPATED AND MET. ALL SAFETY PRECAUTION TAKEN, BED IN LOW LOCKED POSITION, CALL LIGHT WITH IN REACH. WILL CONT TO MONITOR.
[2018-09-21] MEDS ORDERED: ACETAMINOPHEN ES 500 MG TABLET PO ONE (23:00)
--- NOTE | 2018-09-21 23:04 | NUR ---
GAVE REPORT TO JANINE CLARK FOR KWABENA
--- NOTE | 2018-09-21 23:22 | NUR ---
TRANSFERRED PT TO TELE BED 116-1 PER ACLS PROTOCOL
[2018-09-21] MEDS ORDERED: ACETAMINOPHEN 650 MG/SUPP.RECT RC PRN (23:30)
[2018-09-21] MEDS ORDERED: DEXTROSE 50%-WATER 50 ML DISP.SYRIN IV PRN (23:30)
[2018-09-21] MEDS ORDERED: ONDANSETRON HCL/PF 4 MG/2 ML VIAL IVP PRN (23:30)
[2018-09-21] MEDS ORDERED: Z GUARD REMEDY 2 OZ OINT TP PRN (23:30)
[2018-09-22] MEDS: IV D5 LR 1,000 ML IV PRN ×3 (00:42→22:35)
--- NOTE | 2018-09-22 02:30 | NUR ---
YOSVANY PTS RECIVED FROM [facility] FOR CONTINUITY OF CARE.
--- NOTE | 2018-09-22 02:30 | NUR ---
RN NOTES REPORT GIVEN TO ENRIQUETA FOR KWABENA.
[2018-09-22] MEDS ORDERED: VANCOMYCIN 1 GM in IV D5W 250ml IV ONE (04:30)
[2018-09-22] MEDS ORDERED: VANCOMYCIN 1 GM VIAL ONE (05:54)
[2018-09-22 06:29] LABS: OCCULT BLOOD STOOL POSITIVE (NEGATIVE)
--- NOTE | 2018-09-22 06:34 | NUR ---
YOSVANY RN NOTES PTS IN BED AWAKE AND RESPONSIVE , PTS ON ST -108 ON THE MONITOR PTS IS A/OX3 ALL NEEDS ATTENDED TOO CALL LIGHT WITHIN REACH KEPT PTS CLEAN DRY AND COMFORTABLE, REMAINS ON D2LR AT 50CC/HR INFUSING WELL, SPECIMEN FOR OB STOOL AND C-DIFF SENT TO LABS .IV ATB VANCO GIVEN ORDERED WILL ENDORSE TO RN DAY SHIFT ,FOR CONTINUITY OF CARE
[2018-09-22 07:16] LABS: BASOPHILS % (AUTO) 0.3 % (0.0-2.0); EOSINOPHILS % (AUTO) 1.4 % (0.0-6.0); HEMATOCRIT 22 % (33-45); HEMOGLOBIN 7.2 g/dL (11.5-14.8); LYMPHOCYTES # (AUTO) 0.3 /CMM (0.8-4.8); LYMPHOCYTES % (AUTO) 2.5 % (20.0-44.0); MEAN CORPUSCULAR HGB CONC 33 g/dl (31.0-36.0); MEAN CORPUSCULAR VOLUME 78 fL (82-100); MONOCYTES # (AUTO) 0.5 /CMM (0.1-1.30); MONOCYTES % (AUTO) 5.1 % (2.0-12.0); NEUTROPHILS # (AUTO) 9.8 /CMM (1.8-8.9); NEUTROPHILS % (AUTO) 90.7 % (43.0-81.0); PLATELET COUNT (AUTO) 301 /CMM (150-450); RED BLOOD CELL COUNT(AUTO) 2.79 MIL/uL (4.0-5.2); WHITE BLOOD COUNT (AUTO) 10.8 K/uL (4.3-11.0)
--- NOTE | 2018-09-22 07:20 | NUR ---
RN OPENING NOTE RECEIVED PT ON BED AWAKE AND ALERT A&OX3, CLEAR SPEECH. PT PLACED ON TELE MONITOR HR 90'S. PT HAS R UA PICC WITH D5LR AT 125 ML/HR INFUSING ORDERED. PT HAS A COLOSTOMY. MULTIPLE SKIN WOUNDS. PT ORIENTED TO ROOM. ALL NEEDS ANTICIPATED AND MET. ALL SAFETY PRECAUTION TAKEN, BED IN LOW LOCKED POSITION, CALL LIGHT WITH IN REACH. WILL CONT TO MONITOR.
[2018-09-22 07:34] LABS: CALCIUM, SERUM 7.7 mg/dL (8.5-10.1); CARBON DIOXIDE 14 mmol/L (21-32); CHLORIDE 105 mmol/L (98-107); CREATININE 3.6 mg/dL (0.6-1.3); GLUCOSE 92 mg/dL (74-106); MAGNESIUM 1.6 mg/dL (1.8-2.4); PHOSPHORUS 4.5 mg/dL (2.5-4.9); POTASSIUM 3.8 mmol/L (3.5-5.1); SODIUM SERUM 134 mmol/L (136-145); UREA NITROGEN, BLOOD 58 mg/dL (7-18)
[2018-09-22 07:40] LABS: CHOLESTEROL 59 mg/dL (<200); HDL CHOLESTEROL 11 mg/dL (40-60); LDL 32 mg/dL (0-99); THYROID STIMULATING HORMONE 2.295 uIU/mL (0.358-3.74); TRIGLYCERIDES 58 mg/dL (30-150)
[2018-09-22] MEDS: BLOOD SUGAR DIAGNOSTIC 1 EACH STRIP IN SCH ×4 (07:54→21:11)
[2018-09-22 08:00] VITALS: BP_SYST 83; BP_SYST 89; BP_DIAS 40; BP_DIAS 50
[2018-09-22] MEDS: PANTOPRAZOLE 40 MG VIAL IV SCH ×2 (08:04→17:15)
[2018-09-22 08:05] VITALS: BP 89/50
[2018-09-22] MEDS ORDERED: FEE PK DOSING 1 MIN EA MC ONE (08:11)
[2018-09-22 08:12] LABS: IRON, SERUM 12 ug/dl (50-175); TOTAL IRON BINDING CAPACITY 104 ug/dl (250-450)
[2018-09-22] MEDS ORDERED: [UNRECOGNIZED DRUG - CODE] IV (08:23)
[2018-09-22] MEDS ORDERED: ONDA4TAB5 PO (08:23)
[2018-09-22] MEDS ORDERED: MIRT15TA7 PO (08:23)
[2018-09-22] MEDS ORDERED: COLL30OI TP (08:23)
--- NOTE | 2018-09-22 08:35 | NUR ---
RN NOTE: CALLED AND SPOKE WITH MR. KAMALJIT MOTTA (DPOA) AND VERIFIED WITH HIM REGARDING THE POLST OF THE PATIENT. PER MR. MOTTA, HE WANTED DNR/DNI FOR THE PATIENT. DR. FLEMING MADE AWARE AND CODE STATUS WAS ORDERED.
--- NOTE | 2018-09-22 08:36 | NUR ---
RN NOTE: THE CODE STATUS OF THE PATIENT WAS VERIFIED OVER THE PHONE WITH ANOTHER NURSE SWATHI CARRION AND MR. MOTTA STATED DNI/DNI.
[2018-09-22] MEDS ORDERED: AZTREONAM 1 G in IV NS 0.9% 100 ML IV SCH ×2 (09:00→10:00)
--- NOTE | 2018-09-22 09:30 | NUR ---
RN NOTE DR. GOODRICH SEEN THE PATIENT ON THE BEDSIDE. NO NEW ORDERS.
[2018-09-22] MEDS ORDERED: Magnesium 1GM/D5W 100ML PREMIX 100 ML IV SCH (10:00)
[2018-09-22 10:49] LABS: BAND % (MANUAL) 4 % (0.0-5.0); EOSINOPHILS % (MANUAL) 1 % (0-4); LYMPHOCYTES % (MANUAL) 3 % (16-48); MONOCYTES % (MANUAL) 2 % (0-11.0); NEUTROPHILS % (MANUAL) 90 (42-76)
[2018-09-22] MEDS ORDERED: MORPHINE SULFATE INJ 4 MG/ML DISP.SYRIN IV ONE (11:00)
[2018-09-22 12:00] VITALS: BP 81/47
--- NOTE | 2018-09-22 12:26 | NUR ---
RN NOTE DR FLEIMNG MADE AWARE ABOUT THE PATIENT'S BLOOD PRESSURE OF 89/50 AND 81/47. MD ALSO INFORMED THAT THIS BP WAS AFTER THE ADMINISTRATION OF MORPHINE. DOCTOR INCREASED THE FLUIDS D5LR TO 150ML/HR. WILL CONTINUE TO MONITOR CLOSELY
[2018-09-22] MEDS ORDERED: LEVOFLOXACIN 500 MG /D5W 100ML 500 MG in PREMIX 1 EA IV SCH (13:00)
[2018-09-22] MEDS: LEVOFLOXACIN 500 MG /D5W 100ML 500 MG in PREMIX 1 EA IV SCH ×2 (13:31→14:37)
[2018-09-22] MEDS: METRONIDAZOLE 500MG/ NS 100ML 500 MG in PREMIX 1 EA IV SCH ×3 (13:31→23:34)
[2018-09-22 16:00] VITALS: BP 104/45
--- NOTE | 2018-09-22 19:12 | NUR ---
RN CLOSING NOTE REPORT GIVEN TO NOC RN. PATIENT ON BED ASLEEP BUT EASILY AROUSABLE. NO COMPLAINS OF SOB. ON IV FLUIDS RUNNING 150 CC/HR. STILL NPO. TOLD NURSE WAS GIVEN MORPHINE 0.5 MG ONE TIME ONLY. BED LOCKED AND ON LOWEST POSITION. CALL LIGHT WITHIN REACH. WILL ENDORSE TO NOC SHIFT.
[2018-09-22 20:00] VITALS: BP 102/64
--- NOTE | 2018-09-22 20:00 | NUR ---
COPIER OPERATOR NOTES RECEIVED PT IN BED AOX3. PT ON MONITOR SINUS TACH 102. PT ON O2 VIA NC 2L SATING 100%. NO SOB, NO DISTRESS NOTED. IVF ANYA PICC LINE INTACT AND PATENT WITH D5LR 150 CC/HR INFUSING WELL. PT NPO STATUS. COLOSTOMY INTACT W/ LIQUID BM. COMPLAIN OF LEG PAIN. TYLENOL SUPPOSITORY GIVEN 650 MG ORDERED. ALL NEEDS ATTENDED TOO. DUE MEDS GIVEN ORDERED. KEEP PT CLEAN DRY AND COMFORTABLE. VS STABLE AFEBRILE. BED LOCKED AND LOWEST POSITION. WILL CONTINUE TO MONITOR.
--- NOTE | 2018-09-22 21:00 | NUR ---
SNOW REMOVING SUPERVISOR NOTES BS @ 9 PM IS 104 MG/DL. NO COVERAGE GIVE PER SLIDING SCALE. WILL CHECK BS AGAIN IN AM.
[2018-09-22] MEDS: INSULIN REGULAR, HUMAN 100 UNIT/ML 3 ML VIAL SQ PRN (21:10)
[2018-09-23] VITALS (7 sets, daily range): BP systolic 87–112; BP diastolic 40–56
[2018-09-23] MEDS: METRONIDAZOLE 500MG/ NS 100ML 500 MG in PREMIX 1 EA IV SCH ×3 (05:29→17:48)
[2018-09-23 06:28] LABS: BASOPHILS % (AUTO) 0.2 % (0.0-2.0); EOSINOPHILS % (AUTO) 1.3 % (0.0-6.0); HEMATOCRIT 24 % (33-45); HEMOGLOBIN 7.8 g/dL (11.5-14.8); LYMPHOCYTES # (AUTO) 0.5 /CMM (0.8-4.8); LYMPHOCYTES % (AUTO) 5.6 % (20.0-44.0); MEAN CORPUSCULAR HGB CONC 33 g/dl (31.0-36.0); MEAN CORPUSCULAR VOLUME 77 fL (82-100); MONOCYTES # (AUTO) 0.7 /CMM (0.1-1.30); MONOCYTES % (AUTO) 7.6 % (2.0-12.0); NEUTROPHILS # (AUTO) 7.4 /CMM (1.8-8.9); NEUTROPHILS % (AUTO) 85.3 % (43.0-81.0); PLATELET COUNT (AUTO) 347 /CMM (150-450); RED BLOOD CELL COUNT(AUTO) 3.06 MIL/uL (4.0-5.2); WHITE BLOOD COUNT (AUTO) 8.7 K/uL (4.3-11.0)
--- NOTE | 2018-09-23 06:32 | NUR ---
PRODUCT PROMOTER RETAIL PET NOTES PT STABLE. REMAINS ON IVF D5LR 150 CC/HY. REMAIN NPO STATUS. NO KWABENA NOTED. WILL ENDORSE TO RN DAYSHIFT FOR CONTINUITY OF CARE.
[2018-09-23 06:37] LABS: CALCIUM, SERUM 7.6 mg/dL (8.5-10.1); CARBON DIOXIDE 17 mmol/L (21-32); CHLORIDE 109 mmol/L (98-107); CREATININE 3.5 mg/dL (0.6-1.3); GLUCOSE 94 mg/dL (74-106); MAGNESIUM 1.5 mg/dL (1.8-2.4); POTASSIUM 3.9 mmol/L (3.5-5.1); SODIUM SERUM 141 mmol/L (136-145); UREA NITROGEN, BLOOD 53 mg/dL (7-18)
--- NOTE | 2018-09-23 07:23 | NUR ---
RN OPENING NOTE RECEIVED PT ON BED ASLEEP BUT EASILY AWAKENED. PATIENT IS A&OX3, CLEAR SPEECH. PT ON TELE MONITOR HR 90'S. PT HAS R UA PICC WITH D5LR AT 150 ML/HR INFUSING ORDERED. PT HAS A COLOSTOMY WITH LIQUID STOOL. MULTIPLE SKIN WOUNDS ON BILATERAL ANKLE. PT ORIENTED TO ROOM. ALL NEEDS ANTICIPATED AND MET. ALL SAFETY PRECAUTION TAKEN, BED IN LOW LOCKED POSITION, CALL LIGHT WITH IN REACH. WILL CONT TO MONITOR THROUGHOUT THE SHIFT.
[2018-09-23] MEDS: BLOOD SUGAR DIAGNOSTIC 1 EACH STRIP IN SCH ×5 (08:08→22:06)
[2018-09-23] MEDS: PANTOPRAZOLE 40 MG VIAL IV SCH ×2 (08:49→17:34)
[2018-09-23] MEDS: IV D5 LR 1,000 ML IV PRN ×2 (08:59→17:54)
[2018-09-23] MEDS ORDERED: MICAFUNGIN SODIUM 100 MG in IV NS 0.9% 100 ML IV SCH (09:00)
[2018-09-23] MEDS ORDERED: DOSE PER PHARMACY MICAFUNGIN 1 EA XX PRN (09:30)
[2018-09-23] MEDS: HYDROCODONE/APAP 5/325MG 1 EACH TABLET PO PRN ×2 (10:47→16:15)
--- NOTE | 2018-09-23 12:30 | NUR ---
RN NOTE PATIENT HAS BEEN SEEN BY DR FLEMING. PATIENT NOW ON REGULAR DIET. ORDERED LUNCH FOR THE PATIENT. GAVE NORCO FOR PAIN. GOAL IS TO CONSUME >65% OF MEALS AND SUPPLEMENTS. C DIFF POSITIVE, POSITIVE BLOOD CULTURE AND POSITIVE GRAM RODS.
[2018-09-23] MEDS: ENSURE ENLIVE 237 ML LIQUID (VANILLA) PO SCH (18:35)
--- NOTE | 2018-09-23 19:23 | NUR ---
RN CLOSING NOTE REPORT GIVEN TO NOC SHIFT RN. PATIENT IN BED AWAKE AND ALERT. NO COMPLAINS OF ANY PAIN AT THIS TIME. NO SOB NO DISTRESS. PATIENT ON 2L NC. PATIENT POSITIVE FOR CDIFF. ON CONTACT ISOLATION. PATIENT ATE DINNER 25% AND DRANK HER ENSURE. STILL ON IV ANTIBIOTICS ON RIGHT UPPER ARM PICC LINE. SALINE FLUSHED. WOUND CARE DONE. ALL NEEDS ARE MET. BED LOCKED AND ON LOWEST POSITION. CALL LIGHT WITHIN REACH.
--- NOTE | 2018-09-23 19:30 | NUR ---
SALICYLIC ACID BLENDER OPENING NOTES RECEIVED PATIENT IN BED AWARE, ALERT AND ORIENTED X3, VERBALLY RESPONSIVE, ABLE TO MAKE NEEDS KNOWN. BREATHING EVEN AND UNLABORED. NO SOB NOTED. ON 2LPM OXYGEN VIA NC. CURRENTLY WITH NO COMPLAINTS OF PAIN OR DISCOMFORT. NO FACIAL GRIMACING. PICC LINE ON RIGHT UPPER ARM INTACT AND PATENT WITH D5LR RUNNING AT 150CC/HR. SKIN DRY AND WARM TO TOUCH. AFEBRILE. ALL OTHER NEEDS ATTENDED TO. SAFETY MEASURES IN PLACE. CALL LIGHT WITHIN REACH. WILL CONTINUE TO MONITOR.
--- NOTE | 2018-09-23 22:06 | NUR ---
WEBMETHODS ARCHITECT NOTES BS 115 NO COVERAGE NEEDED
--- NOTE | 2018-09-23 22:36 | NUR ---
LEAD BASED PAINT TECHNICIAN NOTES PATIENT REFUSED TO HAVE FEET UNDRESSED FOR PICTURES. PER PATIENT, IT IS TOO PAINFUL WHEN PEOPLE TOUCH IT. OFFERED PATIENT PAIN MEDICATION PRIOR TO TAKING PICTURES, BUT STILL REFUSED. PER PATIENT, "MAYBE TOMORROW." Addendum: 09/23/18 at 2237 by ANTONIO CERVANTES RN ANIL AGUILAR WITNESSED PATIENT'S REFUSAL.
[2018-09-24] VITALS (7 sets, daily range): BP systolic 97–138; BP diastolic 41–59
[2018-09-24] MEDS ORDERED: VANCOMYCIN FOR PO/GT USE 500 MG ORAL.SUSP PO SCH
[2018-09-24] MEDS: HYDROCODONE/APAP 5/325MG 1 EACH TABLET PO PRN ×3 (00:08→16:03)
[2018-09-24] MEDS: METRONIDAZOLE 500MG/ NS 100ML 500 MG in PREMIX 1 EA IV SCH ×4 (00:08→17:38)
[2018-09-24] MEDS: IV D5 LR 1,000 ML IV PRN ×2 (02:47→19:32)
[2018-09-24 06:15] LABS: BASOPHILS # (AUTO) 0.1 /CMM (0.0-0.2); BASOPHILS % (AUTO) 0.9 % (0.0-2.0); EOSINOPHILS % (AUTO) 4.8 % (0.0-6.0); LYMPHOCYTES # (AUTO) 0.3 /CMM (0.8-4.8); LYMPHOCYTES % (AUTO) 5.9 % (20.0-44.0); MEAN CORPUSCULAR HGB CONC 34 g/dl (31.0-36.0); MEAN CORPUSCULAR VOLUME 76 fL (82-100); MONOCYTES # (AUTO) 0.5 /CMM (0.1-1.30); MONOCYTES % (AUTO) 9.2 % (2.0-12.0); NEUTROPHILS # (AUTO) 4.3 /CMM (1.8-8.9); NEUTROPHILS % (AUTO) 79.2 % (43.0-81.0); PLATELET COUNT (AUTO) 335 /CMM (150-450); RED BLOOD CELL COUNT(AUTO) 2.57 MIL/uL (4.0-5.2); WHITE BLOOD COUNT (AUTO) 5.4 K/uL (4.3-11.0)
[2018-09-24 06:22] LABS: HEMATOCRIT 20 % (33-45); HEMOGLOBIN 6.6 g/dL (11.5-14.8)
[2018-09-24 06:27] LABS: CALCIUM, SERUM 7.3 mg/dL (8.5-10.1); CARBON DIOXIDE 18 mmol/L (21-32); CHLORIDE 113 mmol/L (98-107); CREATININE 2.9 mg/dL (0.6-1.3); GLUCOSE 114 mg/dL (74-106); POTASSIUM 3.5 mmol/L (3.5-5.1); SODIUM SERUM 144 mmol/L (136-145); UREA NITROGEN, BLOOD 49 mg/dL (7-18)
--- NOTE | 2018-09-24 06:32 | NUR ---
WATER PROOFER NOTES RECEIVED CRITICAL RESULT FOR HGB 6.6. PAGED DR. GINETTE DUDLEY. AWAITING ORDERS.
[2018-09-24] MEDS: BLOOD SUGAR DIAGNOSTIC 1 EACH STRIP IN SCH ×4 (06:51→21:32)
--- NOTE | 2018-09-24 06:57 | NUR ---
FIELD NURSE CASE MANAGER NOTES NATHANIEL FROM [employer] CALLED TO F/U IF MD CALLED. INFORMED NATHANIEL THAT MD HAS NOT CALLED BACK YET. PER NATHANIEL HE WILL DISPATCH THE MD AGAIN.
[2018-09-24 07:08] LABS: BAND % (MANUAL) 1 % (0.0-5.0); NEUTROPHILS % (MANUAL) 76 (42-76)
[2018-09-24 07:09] LABS: EOSINOPHILS % (MANUAL) 4 % (0-4); LYMPHOCYTES % (MANUAL) 9 % (16-48); MONOCYTES % (MANUAL) 10 % (0-11.0)
--- NOTE | 2018-09-24 07:30 | NUR ---
RN AM SHIFT NOTE PATIENT ALERT AND ORIENTED X4. IN BED, ISOLATION PROTOCAL INITIATED. SITTER AT BEDSIDE. IV PATENT AND INTACT, FLUSHING WELL. PATIENTS HEMOGLOBIN 6.6 THIS AM. SPOKE WITH AND WANTS TO REPEAT LABS. IF LESS THAN 7. TRANSFUSE PATIENT. IV ATB GIVEN AND TOLERATING WELL. CONTINUE TO MONITOR PATIENT.
--- NOTE | 2018-09-24 07:34 | NUR ---
PASTEURIZER CLOSING NOTES PATIENT RESTING IN BED. ENDORSE TO DAY NURSE REGARDING CRITICALLY LOW HGB/HCT - OTHERWISE NO OTHER CHANGES THROUGHOUT SHIFT. BREATHING EVEN AND UNLABORED. NO SOB NOTED. ON 2LPM OXYGEN VIA NC. CURRENTLY WITH NO COMPLAINTS OF PAIN OR DISCOMFORT. NO FACIAL GRIMACING. PICC LINE ON RIGHT UPPER ARM INTACT AND PATENT WITH D5LR RUNNING AT 150CC/HR. SKIN DRY AND WARM TO TOUCH. AFEBRILE. KEPT CLEAN, DRY AND COMFORTABLE. ALL OTHER NEEDS ATTENDED TO. SAFETY MEASURES IN PLACE. CALL LIGHT WITHIN REACH. ENDORSED TO ONCOMING NURSE FOR KWABENA.
[2018-09-24] MEDS: ENSURE ENLIVE 237 ML LIQUID (VANILLA) PO SCH ×3 (08:00→17:40)
[2018-09-24] MEDS: ZINC SULFATE 220 MG CAPSULE PO SCH (09:02)
[2018-09-24] MEDS: ASCORBIC ACID 500 MG TABLET PO SCH (09:02)
[2018-09-24] MEDS: PANTOPRAZOLE 40 MG VIAL IV SCH ×2 (09:04→16:03)
[2018-09-24] MEDS: FLUCONAZOLE -DEXT PREMIX 200 MG in PREMIX 1 EA IV SCH (09:04)
[2018-09-24] MEDS: VANCOMYCIN FOR PO/GT USE 500 MG ORAL.SUSP PO SCH ×3 (09:04→17:38)
--- NOTE | 2018-09-24 12:30 | NUR ---
RN NOTE PATIENTS HEMOGLOBIN 7.0 DO NOT TRANSFUSE PER MD ORDER. TRANSFUSE IF LESS THAN 7. CONTINUE TO MONITOR AND IV FLUIDS.
--- NOTE | 2018-09-24 12:30 | NUR ---
RN NOTE bs BLOOD SUGAR CHECK 122
[2018-09-24] MEDS: LEVOFLOXACIN 500 MG /D5W 100ML 500 MG in PREMIX 1 EA IV SCH (13:29)
[2018-09-24] MEDS: LACTOBACILLUS RHAMNOSUS GG 1 EACH CAP.SPRINK PO SCH (16:03)
--- NOTE | 2018-09-24 17:59 | NUR ---
RN NOTE BLOOD SUGAR ACCUCHECK DONE 112 NO COVERAGE.
--- NOTE | 2018-09-24 19:15 | NUR ---
TELE/RN INITIAL NOTES RECEIVED PT IN BED, ALERT AND VERBALLY RESPONSIVE. SR ON TELE. ON 2L O2 VIA NC, NO SOB NOTED. WITH ONGOING IVF D5LR AT 100 MLS/HR INFUSING WELL ON ANYA PICC LINE. C/D/I. COLOSTOMY INTACT. NO SIGNS OF INFECTION NOTED. ON CONTACT ISOLATION FOR CDIFF. HOB ELEVATED. SAFETY MEASURES IN PLACED. CALL LIGHT WITHIN EASY REACH. WILL CONT TO MONITOR
[2018-09-24] MEDS: MEROPENEM 500 MG in IV NS 0.9% 50 ML IV SCH (20:37)
[2018-09-25] VITALS (8 sets, daily range): BP systolic 91–102; BP diastolic 41–56
[2018-09-25] MEDS: VANCOMYCIN FOR PO/GT USE 500 MG ORAL.SUSP PO SCH ×4 (00:11→18:25)
[2018-09-25] MEDS: METRONIDAZOLE 500MG/ NS 100ML 500 MG in PREMIX 1 EA IV SCH ×4 (00:12→18:23)
[2018-09-25] MEDS: IV D5 LR 1,000 ML IV PRN (05:21)
[2018-09-25] MEDS: HYDROCODONE/APAP 5/325MG 1 EACH TABLET PO PRN ×2 (05:58→22:53)
[2018-09-25 06:23] LABS: BASOPHILS % (AUTO) 0.7 % (0.0-2.0); LYMPHOCYTES # (AUTO) 0.4 /CMM (0.8-4.8); LYMPHOCYTES % (AUTO) 9.5 % (20.0-44.0); MEAN CORPUSCULAR HGB CONC 34 g/dl (31.0-36.0); MEAN CORPUSCULAR VOLUME 76 fL (82-100); MONOCYTES # (AUTO) 0.5 /CMM (0.1-1.30); MONOCYTES % (AUTO) 13.6 % (2.0-12.0); NEUTROPHILS # (AUTO) 2.8 /CMM (1.8-8.9); NEUTROPHILS % (AUTO) 71.2 % (43.0-81.0); PLATELET COUNT (AUTO) 300 /CMM (150-450); RED BLOOD CELL COUNT(AUTO) 2.59 MIL/uL (4.0-5.2)
[2018-09-25 06:26] LABS: HEMATOCRIT 20 % (33-45); HEMOGLOBIN 6.6 g/dL (11.5-14.8)
[2018-09-25 06:41] LABS: ALANINE AMINOTRANSFERASE 18 U/L (12-78); ALBUMIN 1.5 g/dL (3.4-5.0); ALKALINE PHOSPHATASE 91 U/L (46-116); ASPARTATE AMINOTRANSFERASE 24 U/L (15-37); BILIRUBIN,TOTAL 0.3 mg/dL (0.2-1.0); CALCIUM, SERUM 7.3 mg/dL (8.5-10.1); CARBON DIOXIDE 18 mmol/L (21-32); CHLORIDE 115 mmol/L (98-107); CREATININE 2.5 mg/dL (0.6-1.3); GLUCOSE 110 mg/dL (74-106); PHOSPHORUS 3.1 mg/dL (2.5-4.9); POTASSIUM 3.6 mmol/L (3.5-5.1); SODIUM SERUM 145 mmol/L (136-145); TOTAL PROTEIN, SERUM 4.5 g/dL (6.4-8.2); UREA NITROGEN, BLOOD 41 mg/dL (7-18)
[2018-09-25 06:49] LABS: MAGNESIUM 1.2 mg/dL (1.8-2.4)
--- NOTE | 2018-09-25 07:05 | NUR ---
RN NOTES PT IN STABLE CONDITION. NO ACTIVE BLEEDING NOTED. RECEIVED H/H=6.6/20 AND MG=1.2 ORDERED TYPES AND SCREEN AND 1UNIT PER STANDING ORDERS. ALL NEEDS ANTICIPATED. SAFETY MEASURES OBSERVED AT ALL TIME. ENDORSED TO AM SHIFT RN TO FOLLOW UP MED RECON AND MG REPLACEMENT
[2018-09-25 07:23] LABS: BAND % (MANUAL) 1 % (0.0-5.0); EOSINOPHILS % (MANUAL) 7 % (0-4); LYMPHOCYTES % (MANUAL) 14 % (16-48); MONOCYTES % (MANUAL) 7 % (0-11.0); NEUTROPHILS % (MANUAL) 71 (42-76)
--- NOTE | 2018-09-25 07:30 | NUR ---
RN OPENING NOTE RECEIVED PT IN BED AWAKE AND ALERT. NO COMPLAINS OF ANY PAIN OR ANY DISTRESS. ON 2L NC NO SOB NOTED. ON IV FLUIDS RUNNING D5LR AT 100 CC/HR. ON CONTACT ISOLATION. BED LOCKED AND ON LOWEST POSITION. CALL LIGHT WITHIN REACH. WILL CONT TO MONITOR THROUGHOUT THE SHIFT
[2018-09-25] MEDS: ZINC SULFATE 220 MG CAPSULE PO SCH (08:15)
[2018-09-25] MEDS: LACTOBACILLUS RHAMNOSUS GG 1 EACH CAP.SPRINK PO SCH ×2 (08:15→18:24)
[2018-09-25] MEDS: PANTOPRAZOLE 40 MG VIAL IV SCH ×2 (08:15→18:23)
[2018-09-25] MEDS: ASCORBIC ACID 500 MG TABLET PO SCH (08:15)
[2018-09-25] MEDS: MEROPENEM 500 MG in IV NS 0.9% 50 ML IV SCH ×2 (08:15→21:03)
[2018-09-25] MEDS: BLOOD SUGAR DIAGNOSTIC 1 EACH STRIP IN SCH ×4 (08:42→21:03)
[2018-09-25] MEDS: ENSURE ENLIVE 237 ML LIQUID (VANILLA) PO SCH ×3 (08:43→18:57)
[2018-09-25] MEDS: FLUCONAZOLE -DEXT PREMIX 200 MG in PREMIX 1 EA IV SCH (09:53)
[2018-09-25] MEDS: Magnesium 1GM/D5W 100ML PREMIX 100 ML IV SCH ×5 (10:26→16:31)
[2018-09-25] MEDS: INSULIN REGULAR, HUMAN 100 UNIT/ML 3 ML VIAL SQ PRN (12:09)
--- NOTE | 2018-09-25 12:34 | NUR ---
WOUND CARE CONSULT WOUND CARE RECEIVED CONSULT FOR MULTIPLE WOUNDS. WOUND CARE WILL DEFER CONSULT AND ALL TREATMENT PLANS TO PLASTIC SURGICAL TEAM WHO ARE CURRENTLY FOLLOWING THIS PATIENT. PATIENT WITH TRISTIN AT 13, ALL PRESSURE ULCER PREVENTION MEASURES ARE NOTED TO BE IN PLACE. WILL SEE PRN.
--- NOTE | 2018-09-25 19:15 | NUR ---
RN CLOSING NOTE PATIENT IN BED AWAKE AND ALERT. BEDSIDE REPORT GIVEN TO NOC SHIFT NURSE. NO DISTRESS AT THIS TIME. NO COMPLAINS OF ANY PAIN. COLOSTOMY BAG EMPTIED 100 CC OUTPUT. PATIENT RECEIVED 1 PACK OF RBC TODAY AT 1530. REPEAT CBC ORDERED FOR TOMORROW MORNING PER MD ORDER. TURNED AND REPOSITIONED Q2HRS. ALL MEDS ADMINISTERED. INSERTED A LEFT FOREARM IV #24 TO INFUSE MAGNESIUM. STILL ON IV FLUIDS D5LR 100 CC/HR. BED LOCKED AND ON LOWEST POSITION. ALL NEEDS MET. CALL LIGHT WITHIN REACH. WILL ENDORSE TO NOC SHIFT
--- NOTE | 2018-09-25 20:00 | NUR ---
TELE/RN INITIAL NOTES RECEIVED PT IN BED, ALERT AND VERBALLY RESPONSIVE. ON TELE MONITOR W/ SR W/ 1 DEGREE AV BLOCK. ON 2L O2 VIA NC, NO SOB NOTED. WITH ONGOING IVF D5LR AT 100 MLS/HR INFUSING WELL ON ANYA PICC LINE. C/D/I. COLOSTOMY INTACT. NO SIGNS OF INFECTION NOTED. ON CONTACT ISOLATION FOR CDIFF. HOB ELEVATED. SAFETY MEASURES IN PLACED. CALL LIGHT WITHIN EASY REACH. WILL CONT TO MONITOR
[2018-09-26] VITALS: BP 102/54
[2018-09-26] MEDS: METRONIDAZOLE 500MG/ NS 100ML 500 MG in PREMIX 1 EA IV SCH ×3 (00:19→12:21)
[2018-09-26] MEDS: VANCOMYCIN FOR PO/GT USE 500 MG ORAL.SUSP PO SCH ×2 (00:21→05:28)
[2018-09-26] MEDS: IV D5 LR 1,000 ML IV PRN ×2 (01:08→12:22)
[2018-09-26 04:00] VITALS: BP 107/50
[2018-09-26 06:33] LABS: MEAN CORPUSCULAR VOLUME 79 fL (82-100); WHITE BLOOD COUNT (AUTO) 4.4 K/uL (4.3-11.0)
[2018-09-26 06:46] LABS: ALANINE AMINOTRANSFERASE 19 U/L (12-78); ALBUMIN 1.5 g/dL (3.4-5.0); ALKALINE PHOSPHATASE 124 U/L (46-116); ASPARTATE AMINOTRANSFERASE 23 U/L (15-37); BILIRUBIN,TOTAL 0.3 mg/dL (0.2-1.0); CALCIUM, SERUM 7.4 mg/dL (8.5-10.1); CARBON DIOXIDE 21 mmol/L (21-32); CHLORIDE 114 mmol/L (98-107); GLUCOSE 117 mg/dL (74-106); MAGNESIUM 2.2 mg/dL (1.8-2.4); PHOSPHORUS 2.5 mg/dL (2.5-4.9); POTASSIUM 3.7 mmol/L (3.5-5.1); SODIUM SERUM 145 mmol/L (136-145); TOTAL PROTEIN, SERUM 4.4 g/dL (6.4-8.2); UREA NITROGEN, BLOOD 36 mg/dL (7-18)
[2018-09-26 07:03] LABS: BASOPHILS % (AUTO) 0.4 % (0.0-2.0); EOSINOPHILS % (AUTO) 4.7 % (0.0-6.0); HEMATOCRIT 23 % (33-45); HEMOGLOBIN 7.9 g/dL (11.5-14.8); LYMPHOCYTES # (AUTO) 0.5 /CMM (0.8-4.8); LYMPHOCYTES % (AUTO) 10.8 % (20.0-44.0); MEAN CORPUSCULAR HGB CONC 34 g/dl (31.0-36.0); MONOCYTES # (AUTO) 0.8 /CMM (0.1-1.30); MONOCYTES % (AUTO) 17.4 % (2.0-12.0); NEUTROPHILS # (AUTO) 2.9 /CMM (1.8-8.9); NEUTROPHILS % (AUTO) 66.7 % (43.0-81.0); PLATELET COUNT (AUTO) 280 /CMM (150-450); RED BLOOD CELL COUNT(AUTO) 2.97 MIL/uL (4.0-5.2)
--- NOTE | 2018-09-26 07:33 | NUR ---
RN/TELE NOTES: REPORT GIVEN TO NEXT SHIFT NURSE FOR KWABENA.
[2018-09-26 08:00] VITALS: BP 104/52
[2018-09-26] MEDS: ENSURE ENLIVE 237 ML LIQUID (VANILLA) PO SCH ×2 (08:00→13:54)
[2018-09-26 08:33] LABS: BAND % (MANUAL) 1 % (0.0-5.0); EOSINOPHILS % (MANUAL) 6 % (0-4); LYMPHOCYTES % (MANUAL) 19 % (16-48); MONOCYTES % (MANUAL) 10 % (0-11.0); NEUTROPHILS % (MANUAL) 64 (42-76)
[2018-09-26] MEDS: BLOOD SUGAR DIAGNOSTIC 1 EACH STRIP IN SCH ×2 (08:43→12:21)
[2018-09-26] MEDS: PANTOPRAZOLE 40 MG VIAL IV SCH (08:49)
[2018-09-26] MEDS: LACTOBACILLUS RHAMNOSUS GG 1 EACH CAP.SPRINK PO SCH (08:49)
[2018-09-26] MEDS: ZINC SULFATE 220 MG CAPSULE PO SCH (08:49)
[2018-09-26] MEDS: ASCORBIC ACID 500 MG TABLET PO SCH (08:49)
[2018-09-26] MEDS ORDERED: FLUCONAZOLE (100 MG) 100 MG TABLET PO SCH (09:00)
[2018-09-26 12:00] VITALS: BP 111/57
[2018-09-26] MEDS ORDERED: GUAIFENESIN LA 600 MG TABLET.SA PO PRN (13:30)
[2018-09-26] MEDS: HYDROCODONE/APAP 5/325MG 1 EACH TABLET PO PRN (13:56)
[2018-09-26] MEDS ORDERED: ACET650S11 RC (14:09)
[2018-09-26] MEDS ORDERED: ALLA266C2 TP (14:09)
[2018-09-26] MEDS ORDERED: VANC500V10 PO (14:09)
[2018-09-26] MEDS ORDERED: GUAI600T53 PO (14:09)
[2018-09-26] MEDS ORDERED: LACT-246 PO (14:09)
[2018-09-26] MEDS ORDERED: LACT1CAP72 PO (14:09)
[2018-09-26 16:00] VITALS: BP 124/61
--- NOTE | 2018-09-26 16:27 | NUR ---
RN NOTE PATIENT DISCHARGED TO [facility]. REPORT CALLED TO PENG. ID REMOVED, PICTURES TAKEN, TELE BOX REMOVED. LEFT VIA AMBULANCE.
[2018-09-26] MEDS ORDERED: VANCOMYCIN HCL 125 MG/2.5 ML ORAL.SUSP PO SCH (18:00)
== END 2018-09-26 16:00 | DRG 871 ==
LOC: ER 19:42 → TELE1 22:59 → TELE-TD 09-22 00:34 → TELE1 09-22 10:11
PROVIDERS: ADMIT Hospitalist; ATTEND Registered Nurse
PROC: 30233N1 Transfusion of Nonautologous Red Blood Cells into Peripheral Vein, Percutaneous Approach (ICD-10-PCS; principal; 2018-09-25)
DX: A41.9 Sepsis, unspecified organism (principal); N17.0 Acute kidney failure with tubular necrosis; R53.2 Functional quadriplegia; E43 Unspecified severe protein-calorie malnutrition; N39.0 Urinary tract infection, site not specified; E87.1 Hypo-osmolality and hyponatremia; A04.71 Enterocolitis due to Clostridium difficile, recurrent; Z68.1 Body mass index [BMI] 19.9 or less, adult; D68.59 Other primary thrombophilia; L97.319 Non-pressure chronic ulcer of right ankle with unspecified severity; L97.419 Non-pressure chronic ulcer of right heel and midfoot with unspecified severity; B37.49 Other urogenital candidiasis; M19.90 Unspecified osteoarthritis, unspecified site; L98.8 Other specified disorders of the skin and subcutaneous tissue; D50.9 Iron deficiency anemia, unspecified; E83.42 Hypomagnesemia; E86.1 Hypovolemia; K21.9 Gastro-esophageal reflux disease without esophagitis; F17.210 Nicotine dependence, cigarettes, uncomplicated; E03.9 Hypothyroidism, unspecified; Z86.718 Personal history of other venous thrombosis and embolism; Z93.3 Colostomy status; Z88.0 Allergy status to penicillin; F03.90 Unspecified dementia, unspecified severity, without behavioral disturbance, psychotic disturbance, mood disturbance, and anxiety; E88.09 Other disorders of plasma-protein metabolism, not elsewhere classified; E11.51 Type 2 diabetes mellitus with diabetic peripheral angiopathy without gangrene; I70.233 Atherosclerosis of native arteries of right leg with ulceration of ankle; I70.234 Atherosclerosis of native arteries of right leg with ulceration of heel and midfoot; B96.20 Unspecified Escherichia coli [E. coli] as the cause of diseases classified elsewhere; L30.4 Erythema intertrigo; I10 Essential (primary) hypertension; M51.36 Other intervertebral disc degeneration, lumbar region; R65.20 Severe sepsis without septic shock
CPT/HCPCS: 36415; 80048-TC; 80053-TC; 80061-TC; 80076-TC; 81000-TC; 82272-TC; 82962-TC; 83540-TC; 83605-TC; 83690-TC; 83735-TC; 84100-TC; 84443-TC; 85025-TC; 85027-TC; 85610-TC; 86850-TC; 86921-TC; 87040-TC; 87081-TC; 87086-TC; 87186-TC; A4216; C9113; G0378; J1450; J1815; J1956; J2185; J2248; J2270; J2405; J3370; J3475; J3490; J7030; J7040; J7050; J7060; J7120; P9016-BL